=== PATIENT | male | born 1935 | race Two or more races ===

== ENCOUNTER 2018-01-20 12:24 | Inpatient (IN) | payer OTHER ==
[2018-01-20 12:31] VITALS: BMI 26.3
--- NOTE | 2018-01-20 12:50 | PDOC ---
History of Present Illness - General Chief Complaint: Pain, Acute Stated Complaint: ABD PAIN Time Seen by Provider: 01/20/18 12:43 - History of Present Illness Initial Comments: 01/20/18 12:48 82 yo M with h/o Alzheimer dementia, and HTN who p/w abdominal pain and AMS. Per Pt. daughter and at bedside, pt. has had report of abdominal pain within 24 hours beginning yesterday evening. He is unable to characterize or quantify pain, and unable to recall last BM. Family also reports pt. has increased confusion, and forgetfulnness within past 24 hours. No reported fevers. No witnessed falls or injury. Pt. lives at home with daughter and . Denies F/C, N/V, CP, SOB, diarrhea, constipation, urinary complaints, weakness , lightheadedness, sensory changes. Dr. Arce PMD. Past History - Past Medical History Allergies/Adverse Reactions: Allergies Allergy/AdvReac Type Severity Reaction Status Date / Time No Known Allergies Allergy Verified 01/20/18 12:26 COPD: No HTN: Yes Psychiatric Problems: (dementia) - Immunization History Immunization Up to Date: Yes - Suicide/Smoking/Psychosocial Hx Smoking History: Never smoked Review of Systems - Review of Systems Comments:: Unable to obtain d/t AMS. *Physical Exam - Vital Signs Last Vital Signs Temp Pulse Resp BP Pulse Ox 97.7 F 89 20 138/65 95 01/20/18 12:26 01/20/18 12:26 01/20/18 12:26 01/20/18 12:26 01/20/18 12:26 - Physical Exam Comments: 01/20/18 12:48 GENERAL: Awake, alert, and fully oriented, in no acute distress HEAD: No signs of trauma, normocephalic, atraumatic EYES: PERRLA, EOMI, sclera anicteric, conjunctiva clear ENT: Auricles normal inspection, hearing grossly normal, nares patent, oropharynx clear without exudates. Moist mucosa NECK: Normal ROM, supple, no lymphadenopathy, JVD, or masses LUNGS: No distress, speaks full sentences, clear to auscultation bilaterally HEART: Regular rate and rhythm, normal S1 and S2, no murmurs, rubs or gallops, peripheral pulses normal and equal bilaterally. ABDOMEN: Soft, slight midabdominal ttp, normoactive bowel sounds. No guarding, no rebound. No masses. Neg CVA ttp. Neg suprapubic ttp. EXTREMITIES : Normal inspection, Normal range of motion, no edema. No clubbing or cyanosis. NEUROLOGICAL: Cranial nerves II through XII grossly intact. Normal speech, normal gait, no focal sensorimotor deficits SKIN: Warm, Dry, normal turgor, no rashes or lesions noted ED Treatment Course - LABORATORY CBC & Chemistry Diagram: 01/20/18 13:55 01/20/18 13:55 Medical Decision Making - Medical Decision Making 01/20/18 12:52 82 yo M with h/o Alzheimer dementia, and HTN who p/w abdominal pain and AMS within 24 hours beginning yesterday evening. Family also reports pt.with increased confusion, and forgetfulness within past 24 hours. No reported fevers. No witnessed falls or injury. Pt. lives at home with daughter and . Denies F/C, N/V, CP, SOB, diarrhea, constipation, urinary complaints, weakness , lightheadedness, sensory changes. Dr. Arce PMD. Physical exam with midabominal ttp. Will evaluate for suspected causes of AMS in elderly patient with multiple commorbidities. Differential is broad and includes underlying infection ( GI source suspected- choley,colitis) , electrolyte abnormality, metabolic acid-base disturbance, CVA/TIA. PMD Dr. Arce, admits to hospitalist. Abdominal pain may be 2/2 constipation vs. more concerning GI pathology. Will obtain abdominal imaging. ED Course: CBC, CMP, Cardiac Pr, Lipase EKG, CXR UA CT HEAD, CT AP 01/20/18 13:42 CBC: Unremarkable UA: Neg. 2 Urine bilirubin 01/20/18 14:55 1830 AST, 2141 ALT, 3.4 Bili, 254 Alk Phosp Lipase: Neg 01/20/18 14:55 1098 BNP 01/20/18 16:37 CT HEAD: No acute intracranial pathology. 01/20/18 18:48 CT AP: Contracted gallbladder. Pericholeycystic fluid and gallbladder wall thickening. 01/20/18 18:51 IV Levaquin, and Flagyl 01/20/18 19:01 Consult placed to [facility] and Dr. Castro Jimenez surgery ( answering service requesting call back). Attempted call to . Spoke to Dr. Jimenez she reports pt. needs RUQ U/S and will come to evaluate pt. Possible MRCP. 01/20/18 19:17 Pt. signed out to . Pt. stable. *DC/Admit/Observation/Transfer Diagnosis at time of Disposition: Transaminitis, Abdominal pain - Referrals Referrals: Tod Mulligan MD [Primary Care Provider] - - Patient Instructions - Post Discharge Activity - Attestations Physician Attestion: 01/20/18 12:50 I attest to the information provided in this note.
--- NOTE | 2018-01-20 13:08 | PDOC ---
Attending Attestation - Resident Resident Name: Masood Mirandason - ED Attending Attestation I have performed the following: I have examined & evaluated the patient, The case was reviewed & discussed with the resident, I agree w/resident's findings & plan, Exceptions are as noted - HPI HPI: 01/20/18 14:05 82 yo M h/o Dementia and HTN who presents to the ER with a complaint of abdominal pain and AMS Symptoms began yesterday History is limited due to pt dementia ? diarrhea ? constipation No nausea or vomiting No dysuria Pt increasingly confused and forgetful more than baseline over the past 24 hours - Physicial Exam PE: 01/20/18 14:06 GENERAL: The patient is in no acute distress. LUNGS: Breath sounds equal, clear to auscultation bilaterally. No wheezes, and no crackles. HEART:Regular rate and rhythm, normal S1 and S2 without murmur, rub or gallop. ABDOMEN: Soft, nontender, normoactive bowel sounds. No guarding, no rebound. No masses palpable. EXTREMITIES: Normal range of motion, no edema. No clubbing or cyanosis. No erythema, or tenderness. NEUROLOGICAL: Cranial nerves II through XII grossly intact. Normal speech. No focal neurological deficits. MUSCULOSKELETAL: Back non-tender to palpation, no CVA tenderness SKIN: Warm, Dry, normal turgor, no rashes or lesions noted. - Medical Decision Making 01/20/18 15:19 Laboratory Tests 01/20/18 01/20/18 01/20/18 13:55 13:55 13:55 WBC 8.8 Hgb 14.7 Hct 43.6 Plt Count 189 Sodium 140 Potassium 3.6 Chloride 101 Carbon Dioxide 26 BUN 23 H Creatinine 1.4 H Random Glucose 135 H Total Bilirubin 3.4 H AST 1830 H ALT 2141 H Alkaline Phosphatase 254 H Troponin I 0.03 B-Natriuretic Peptide 1098.[address] Pending US Will admit Clinical Impression: possible cholecystitis, initial presentation
[2018-01-20 14:14] LABS: BASO % 0.1 % (0-2.0); EOS % 0.1 % (0-4.5); HEMATOCRIT 43.6 % (35.4-49); HEMOGLOBIN 14.7 GM/dL (11.7-16.9); LYMPH % 2.8 % (8-40); MCH 29.8 pg (25.7-33.7); MCHC 33.8 g/dl (32.0-35.9); MEAN CELL VOLUME 88.1 fl (80-96); MEAN PLT VOLUME 8.6 fl (7.5-11.1); MONO % 5.3 % (3.8-10.2); NEUT % 91.7 % (42.8-82.8); PLATELET COUNT 189 K/MM3 (134-434); RBC 4.95 M/mm3 (4.00-5.60); RDW 13.8 % (11.9-15.9); WHITE BLOOD COUNT 8.8 K/mm3 (4.0-10.0)
[2018-01-20 14:25] LABS: URINE APPEARANCE CLEAR; URINE BLOOD NEGATIVE (NEGATIVE); URINE COLOR AMBER; URINE GLUCOSE (UA) NEGATIVE (NEGATIVE); URINE KETONE NEGATIVE (NEGATIVE); URINE LEUK ESTERASE NEGATIVE (NEGATIVE); URINE NITRITE NEGATIVE (NEGATIVE); URINE UROBILINOGEN 4.0 E.U/dl mg/dL (0.2-1.0)
[2018-01-20 14:32] LABS: URINE PROTEIN 1+ (NEGATIVE)
[2018-01-20 14:36] LABS: INR 1.02 (0.82-1.09); PROTHROMBIN TIME (PATIENT) 11.5 SEC (9.98-11.88); URINE MUCUS MANY
[2018-01-20 14:38] LABS: ALBUMIN 3.7 g/dl (3.4-5.0); ANION GAP 13 (8-16); BILIRUBIN,TOTAL 3.4 mg/dL (0.2-1.0); BLOOD UREA NITROGEN 23 mg/dL (7-18); CHLORIDE 101 mmol/L (98-107); CO2 26 mmol/L (21-32); CREATININE 1.4 mg/dL (0.7-1.3); GLUCOSE,RANDOM 135 mg/dL (74-106); POTASSIUM 3.6 mmol/L (3.5-5.1); SODIUM 140 mmol/L (136-145); TOT PROT 7.7 g/dl (6.4-8.2)
[2018-01-20 14:42] LABS: N-TERMINAL BNP 1098.62 pg/ml (5-450)
[2018-01-20 14:44] LABS: ALK PHOS 254 U/L (45-117)
[2018-01-20 14:49] LABS: SGOT/AST 1830 U/L (15-37); SGPT/ALT 2141 U/L (12-78)
[2018-01-20] MEDS ORDERED: SODIUM CHLORIDE 1,000 ML IV STA ×2 (15:48→19:10)
--- NOTE | 2018-01-20 19:46 | PDOC ---
*Physical Exam - Vital Signs Last Vital Signs Temp Pulse Resp BP Pulse Ox 97.7 F 89 20 138/65 95 01/20/18 12:26 01/20/18 12:26 01/20/18 12:26 01/20/18 12:26 01/20/18 12:26 ED Treatment Course - LABORATORY CBC & Chemistry Diagram: 01/20/18 13:55 01/20/18 13:55 - ADDITIONAL ORDERS Additional order review: Laboratory Results 01/20/18 01/20/18 01/20/18 13:55 13:55 13:55 PT with INR 11.50 INR 1.02 Sodium 140 Potassium 3.6 Chloride 101 Carbon Dioxide 26 Anion Gap 13 BUN 23 H Creatinine 1.4 H Creat Clearance w eGFR 48.76 Random Glucose 135 H Calcium 9.0 Total Bilirubin 3.4 H AST 1830 H ALT 2141 H Alkaline Phosphatase 254 H Creatine Kinase Troponin I B-Natriuretic Peptide Total Protein 7.7 Albumin 3.7 Lipase Urine Color Urine Appearance Urine pH Ur Specific [place] Urine Protein Urine Glucose (UA) Urine Ketones Urine Blood Urine Nitrite Urine Bilirubin Urine Urobilinogen Ur Leukocyte Esterase Urine WBC (Auto) Urine RBC (Auto) Urine Mucus Blood Type O POSITIVE Antibody Screen Negative 01/20/18 01/20/18 13:55 13:55 PT with INR INR Sodium Potassium Chloride Carbon Dioxide Anion Gap BUN Creatinine Creat Clearance w eGFR Random Glucose Calcium Total Bilirubin AST ALT Alkaline Phosphatase Creatine Kinase 132 Troponin I 0.03 B-Natriuretic Peptide 1098.62 H Total Protein Albumin Lipase 143 Urine Color Lu Urine Appearance Clear Urine pH 5.0 Ur Specific [place] 1.026 Urine Protein 1+ H Urine Glucose (UA) Negative Urine Ketones Negative Urine Blood Negative Urine Nitrite Negative Urine Bilirubin 2.0 Urine Urobilinogen 4.0 e.u/dl Ur Leukocyte Esterase Negative Urine WBC (Auto) 3 Urine RBC (Auto) 3 Urine Mucus Many Blood Type Antibody Screen 01/20/18 13:55 RBC 4.95 MCV 88.1 MCHC 33.8 RDW 13.8 MPV 8.6 Neutrophils % 91.7 H Lymphocytes % 2.8 L Monocytes % 5.3 Eosinophils % 0.1 Basophils % 0.1 - RADIOLOGY Radiology Studies Ordered: Category Date Time Status ABDOMEN US -LIMITED [US] Stat Ultrasound 01/20/18 19:42 Ordered - Medications Given in the ED: ED Medications Discontinued Medications Generic Name Dose Route Start Last Admin Trade Name Freq PRN Reason Stop Dose Admin Sodium Chloride 1,000 mls @ 1,000 mls/hr 01/20/18 15:48 01/20/18 16:53 Normal Saline - IV 01/20/18 16:47 1,000 mls/hr ASDIR STA Administration Medical Decision Making - Medical Decision Making Patient signed out in stable condition with concern for choledocholithiasis. Signed out to hospitalist (Dr. Brian) in stable condition pending US. 01/20/18 19:44 *DC/Admit/Observation/Transfer Diagnosis at time of Disposition: Transaminitis, Abdominal pain - Discharge Dispostion Condition at time of disposition: Stable Admit: Yes Decision to Admit order Date/Time: Decision to Admit Order Category Date Time Status Decision to Admit to Hospital Routine Admission 01/20/18 19:43 Ordered - Referrals Referrals: Tod Mulligan MD [Primary Care Provider] - - Patient Instructions - Post Discharge Activity
--- NOTE | 2018-01-20 20:01 | PN ---
Teaching Attending Note Name of Resident: Reji Wiseman ATTENDING PHYSICIAN STATEMENT I saw and evaluated the patient. I reviewed the resident's note and discussed the case with the resident. I agree with the resident's findings and plan as documented. SUBJECTIVE: 82 yo M with pmhx. of Alzheimers dementia, htn, who presents with abdominal pain and AMS. States abdominal pain started a day ago. Also as per family he is increasingly confused. Denies any fevers. No Chest pain, pressure or shortness of breath. Pt. States he feels ok, but notes decreased appetitite. No nausea, vomiting, or diarrhea. OBJECTIVE: Physical: VS: Vital Signs Period Temp Pulse Resp BP Sys/Calles Pulse Ox Last 24 Hr 97.7 F 89 20 138/65 95 GEN: NAD, Resting in bed, AA)x3 HEENT: NCAT, PERRL, Throat without erythema or exudates CARD: RRR S1, S2 RESP: CTAB ABD: TTP RUQ, BSx4, Mild distension EXT: - C/C/E CBCD WBC 8.8 K/mm3 (4.0-10.0) 01/20/18 13:55 RBC 4.95 M/mm3 (4.00-5.60) 01/20/18 13:55 Hgb 14.7 GM/dL (11.7-16.9) 01/20/18 13:55 Hct 43.6 % (35.4-49) 01/20/18 13:55 MCV 88.1 fl (80-96) 01/20/18 13:55 MCHC 33.8 g/dl (32.0-35.9) 01/20/18 13:55 RDW 13.8 % (11.9-15.9) 01/20/18 13:55 Plt Count 189 K/MM3 (134-434) 01/20/18 13:55 MPV 8.6 fl (7.5-11.1) 01/20/18 13:55 CMP Sodium 140 mmol/L (136-145) 01/20/18 13:55 Potassium 3.6 mmol/L (3.5-5.1) 01/20/18 13:55 Chloride 101 mmol/L (98-107) 01/20/18 13:55 Carbon Dioxide 26 mmol/L (21-32) 01/20/18 13:55 Anion Gap 13 (8-16) 01/20/18 13:55 BUN 23 mg/dL (7-18) H 01/20/18 13:55 Creatinine 1.4 mg/dL (0.7-1.3) H 01/20/18 13:55 Creat Clearance w eGFR 48.76 (>60) 01/20/18 13:55 Random Glucose 135 mg/dL (74-106) H 01/20/18 13:55 Calcium 9.0 mg/dL (8.5-10.1) 01/20/18 13:55 Total Bilirubin 3.4 mg/dL (0.2-1.0) H 01/20/18 13:55 AST 1830 U/L (15-37) H 01/20/18 13:55 ALT 2141 U/L (12-78) H 01/20/18 13:55 Alkaline Phosphatase 254 U/L (45-117) H 01/20/18 13:55 Total Protein 7.7 g/dl (6.4-8.2) 01/20/18 13:55 Albumin 3.7 g/dl (3.4-5.0) 01/20/18 13:55 CARDIAC ENZYMES Creatine Kinase 132 IU/L (39-308) 01/20/18 13:55 Troponin I 0.03 ng/ml (0.00-0.05) 01/20/18 13:55 CT AP: Contracted gallbladder. Pericholeycystic fluid and gallbladder wall thickening. CT HEAD- Negative EKG: PENDING CXR: No Acute Process ASSESSMENT AND PLAN: 82 yo M with pmhx. of Alzheimers dementia, htn, who presents with abdominal pain and AMS, found to have elevated transaminases and contracted Gallbladded on CT 1.) Abdominal Pain - RO Choledocholithisis - ABD US stat - MRCP with con, if Cr improves - GI/Sx - C/W Abx - Pancx - IVF 2.) BEA - Unknown Baseline - IVF - U lytes 3.) HTN - Need med confirmation from Pharmacy 4.) Alzheimer's Dementia - Confirm home meds 5.) Dvt Ppx - SCDs Place in Med-Sx
[2018-01-20] MEDS ORDERED: DOCUSATE SODIUM 100 MG CAPSULE (FP) PO PRN (20:30)
--- NOTE | 2018-01-20 20:39 | CONSULT ---
Consult Consult Specialty:: General Surgery Referred by:: Ralph Miranda Reason for Consultation:: elevated LFTs, possible cholecystitis?, contracted gallbladder - History of Present Illness Chief Complaint: abdominal pain, "walking funny" History of Present Illness: 82yo Citizen Of [place] M with HTN, depression, Alzheimer's, presents with about a week of increasing forgetfulness and confusion per family with difficulty walking right, and yesterday began having epigastric abdominal pain as well. They deny F /C, N/V, diarrhea, but he did have hard stool yesterday which was dark, and has had very dark yellow urine in last day. He tends to constipation. He is currently hungry and denies pain. In ER, he has had some IVF, antibiotics, and noncontrast CT, which showed contracted gallbladder with wall thickening and/or pericholecystic fluid but no ductal dilation. Renal labs and LFTs are elevated but lipase, wbc, INR are normal. He is dehydrated by labs and urine. He is being admitted to medicine with US pending, and surgery is asked to evaluate. He takes medicines at home that family is unsure of - a medicine for blood pressure, something for depression, aspirin... the medical team will check with his pharmacy. 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 (being worked up by PMD for confusion, forgetfulness, fidgeting) Cardio/Vascular: Yes: HTN Gastrointestinal: Yes: Constipation Psych: Yes: Depression - Past Surgical History Past Surgical History: Yes: Colonoscopy (in DR, years ago), Hernia Repair ( umbilical (years ago)) - Alcohol/Substance Use Hx Alcohol Use: No (not for many years/socially) History of Substance Use: reports: None - Smoking History Smoking history: Former smoker Have you smoked in the past 12 months: No If you are a former smoker, when did you quit?: 15 yrs ago - Social History Usual Living Arrangement: With Spouse Home Medications - Allergies Allergies/Adverse Reactions: Allergies Allergy/AdvReac Type Severity Reaction Status Date / Time No Known Allergies Allergy Verified 01/20/18 12:26 - Home Medications Home Medications (free text): BP med. aspirin. something for depression. ( primary team to get list from pharmacy) Family Disease History - Family Disease History Family History: Unremarkable Review of Systems Unable to obtain ROS, reason: ltd - per family only - Review of Systems Constitutional: denies: Chills, Fever Cardiovascular: denies: Chest Pain, Palpitations Respiratory: denies: Cough, SOB Gastrointestinal: reports: Abdominal Pain (with hpi), Constipation (hard stool yesterday, dark stool). denies: Diarrhea, Nausea, Vomiting Genitourinary: reports: Other (very dark yellow urine in last day). denies: Burning, Dysuria Musculoskeletal: denies: Back Pain, Joint Pain Neurological: reports: Confusion, Unsteady Gait (per family - "walking funny"). denies: Headache Psychiatric: reports: Depression Physical Exam Vital Signs: Vital Signs Temperature 97.7 F 01/20/18 12:26 Pulse Rate 89 01/20/18 12:26 Respiratory Rate 20 01/20/18 12:26 Blood Pressure 138/65 01/20/18 12:26 O2 Sat by Pulse Oximetry (%) 95 01/20/18 12:26 Constitutional: Yes: Well Nourished, No Distress, Calm Eyes: Yes: Conjunctiva Clear, EOM Intact. No: Sclera Icterus HENT: Yes: Atraumatic, Normocephalic Neck: Yes: Supple, Trachea Midline Cardiovascular: Yes: Regular Rate and Rhythm. No: Murmur Respiratory: Yes: Regular, CTA Bilaterally Gastrointestinal: Yes: Normal Bowel Sounds, Soft, Distention (protuberant), Tenderness (minimal epigastric, denies RUQ), Tenderness, Epigastrium (minimal), Other (healed infraumbilical scar). No: Hernia, Tenderness, Rebound ...Rectal Exam: Yes: Deferred Renal/: No: CVA Tenderness - Left, CVA Tenderness - Right Musculoskeletal: No: Joint Stiffness, Joint Swelling Extremities: No: Cool, Cyanosis Edema: No Peripheral Pulses WNL: Yes Integumentary: No: Jaundice, Rash Neurological: Yes: Alert, Oriented (cooperative, answers questions, but does seem a little confused), Confusion (somewhat, baseline unclear), Other (gait not witnessed) Psychiatric: Yes: Alert. No: Agitated Labs: CBC, BMP 01/20/18 13:55 01/20/18 13:55 CMP Sodium 140 mmol/L (136-145) 01/20/18 13:55 Potassium 3.6 mmol/L (3.5-5.1) 01/20/18 13:55 Chloride 101 mmol/L (98-107) 01/20/18 13:55 Carbon Dioxide 26 mmol/L (21-32) 01/20/18 13:55 Anion Gap 13 (8-16) 01/20/18 13:55 BUN 23 mg/dL (7-18) H 01/20/18 13:55 Creatinine 1.4 mg/dL (0.7-1.3) H 01/20/18 13:55 Creat Clearance w eGFR 48.76 (>60) 01/20/18 13:55 Random Glucose 135 mg/dL (74-106) H 01/20/18 13:55 Calcium 9.0 mg/dL (8.5-10.1) 01/20/18 13:55 Total Bilirubin 3.4 mg/dL (0.2-1.0) H 01/20/18 13:55 AST 1830 U/L (15-37) H 01/20/18 13:55 ALT 2141 U/L (12-78) H 01/20/18 13:55 Alkaline Phosphatase 254 U/L (45-117) H 01/20/18 13:55 Creatine Kinase 132 IU/L (39-308) 01/20/18 13:55 Troponin I 0.03 ng/ml (0.00-0.05) 01/20/18 13:55 B-Natriuretic Peptide 1098.62 pg/ml (5-450) H 01/20/18 13:55 Total Protein 7.7 g/dl (6.4-8.2) 01/20/18 13:55 Albumin 3.7 g/dl (3.4-5.0) 01/20/18 13:55 Lipase 143 U/L (73-393) 01/20/18 13:55 INR, PTT INR 1.02 (0.82-1.09) 01/20/18 13:55 Urine Test Results Urine Color Lu 01/20/18 13:55 Urine Appearance Clear 01/20/18 13:55 Urine pH 5.0 (5.0-8.0) 01/20/18 13:55 Ur Specific [place] 1.026 (1.001-1.035) 01/20/18 13:55 Urine Protein 1+ (NEGATIVE) H 01/20/18 13:55 Urine Glucose (UA) Negative (NEGATIVE) 01/20/18 13:55 Urine Ketones Negative (NEGATIVE) 01/20/18 13:55 Urine Blood Negative (NEGATIVE) 01/20/18 13:55 Urine Nitrite Negative (NEGATIVE) 01/20/18 13:55 Urine Bilirubin 2.0 (<2.0 mg/dL) 01/20/18 13:55 Ur Leukocyte Esterase Negative (NEGATIVE) 01/20/18 13:55 Urine Mucus Many 01/20/18 13:55 normal wbc elevated LFTs, normal lipase minimally elevated BNP dehydrated BUN/Cr a little high - unknown baseline normal PT/INR Imaging - Results Cat Scan: Report Reviewed, Image Reviewed (noncontrast images reviewed - contracted gallbladder with thickened wall (may be physiologic), but possible pericholecystic fluid, no biliary ductal dilation noted, few hypoattenuating hepatic lesions, no obstruction, no free air or fluid/ascites) Ultrasound: Pending Problem List - Problems (1) Elevated liver enzymes Assessment/Plan: admitted to medicine agree with NPO/IVF trend labs, including T/D bili, am/lipase, ammonia, LFTs, hepatitis panel nonnarcotic pain meds as able prn GI/DVT prophylaxis CT with abnormal appearing gallbladder but without clear cholecystitis US pending probably will need MRI/MRCP WITH contrast tomorrow, after rehydrated and improved renal function further input pending above Code(s): R74.8 - ABNORMAL LEVELS OF OTHER SERUM ENZYMES (2) Epigastric pain Assessment/Plan: minimal epigastric tenderness studies pending Code(s): R10.13 - EPIGASTRIC PAIN (3) Other abnormalities of gait and mobility Assessment/Plan: gait not witnessed fall risk Code(s): R26.89 - OTHER ABNORMALITIES OF GAIT AND MOBILITY (4) Dehydration Assessment/Plan: NPO IVF resuscitation and maintenance Code(s): E86.0 - DEHYDRATION (5) Altered mental status Assessment/Plan: increased confusion and forgetfulness per family check ammonia level Code(s): R41.82 - ALTERED MENTAL STATUS, UNSPECIFIED Qualifiers: Altered mental status type: disorientation Qualified Code(s): R41.0 - Disorientation, unspecified (6) Alzheimers disease Assessment/Plan: Dr. Mulligan working him up for fidgetiness, forgetfulness, confusion Code(s): G30.9 - ALZHEIMER'S DISEASE, UNSPECIFIED; F02.80 - DEMENTIA IN OTH DISEASES CLASSD ELSWHR W/O BEHAVRL DISTURB Qualifiers: Alzheimer's disease onset: unspecified onset Dementia behavioral disturbance: with behavioral disturbance Qualified Code(s): G30.9 - Alzheimer' s disease, unspecified; F02.81 - Dementia in other diseases classified elsewhere with behavioral disturbance; F02.81 - Dementia in other diseases classified elsewhere with behavioral disturbance; F02.81 - Dementia in other diseases classified elsewhere with behavioral disturbance
[2018-01-20] MEDS: SODIUM CHLORIDE 1,000 ML IV SCH (20:55)
--- NOTE | 2018-01-20 20:55 | HP ---
CHIEF COMPLAINT: abdominal pain PCP: Dr. Bhagat HISTORY OF PRESENT ILLNESS: 82 year old male with a history of hypertension and dementia presents to the hospital for 24 hour history of RUQ abdominal pain that began last night at 9pm while he was watching TV. He states that the pain is abrupt, non-radiating, 10/ 10 in severity located in the RUQ. He was eating dinner prior to the pain beginning. Not associated with any nausea, vomiting or diarrhea. His family states that he had a similar pain several months ago which went away spontaneously without intervention. His last colonoscopy was many years ago in the [place]. He states that his last bowel movement was yesterday and says that his urine is dark yellow. States that the pain has improved since initial presentation. Patient denies chest pain, shortness of breath, nausea, vomiting, diarrhea, fevers, chills, headache. Home meds: Donezepil, Meloxicam, Aspirin, Amlodipine, [place]-3, Vitamin B, Sertraline - Patient pharamcy: [facility] on [facility]. ER course was notable for: (1) AST/ALT 1830/2141, AP 254 (2) CT abd: pericholecystic fluid/gallbladder wall thickening (3) levaquin/flagyl given PAST MEDICAL HISTORY: HTN, dementia PAST SURGICAL HISTORY: hernia repair years ago Social History: Smoking: former smoker, quit 15 years ago Alcohol: former social drinker Drugs: none Allergies No Known Allergies Allergy (Verified 01/20/18 12:26) HOME MEDICATIONS: REVIEW OF SYSTEMS CONSTITUTIONAL: Absent: fever, chills, diaphoresis, generalized weakness, malaise, loss of appetite, weight change HEENT: Absent: rhinorrhea, nasal congestion, throat pain, throat swelling, difficulty swallowing, mouth swelling, ear pain, eye pain, visual changes CARDIOVASCULAR: Absent: chest pain, syncope, palpitations, irregular heart rate, lightheadedness , peripheral edema RESPIRATORY: Absent: cough, shortness of breath, dyspnea with exertion, orthopnea, wheezing, stridor, hemoptysis GASTROINTESTINAL: abdominal pain Absent: abdominal distension, nausea, vomiting, diarrhea, constipation, melena , hematochezia GENITOURINARY: Absent: dysuria, frequency, urgency, hesitancy, hematuria, flank pain, genital pain MUSCULOSKELETAL: Absent: myalgia, arthralgia, joint swelling, back pain, neck pain SKIN: Absent: rash, itching, pallor HEMATOLOGIC/IMMUNOLOGIC: Absent: easy bleeding, easy bruising, lymphadenopathy, frequent infections ENDOCRINE: Absent: unexplained weight gain, unexplained weight loss, heat intolerance, cold intolerance NEUROLOGIC: Absent: headache, focal weakness or paresthesias, dizziness, unsteady gait, seizure, mental status changes, bladder or bowel incontinence PSYCHIATRIC: Absent: anxiety, depression, suicidal or homicidal ideation, hallucinations. PHYSICAL EXAMINATION Vital Signs - 24 hr 01/20/18 12:26 Temperature 97.7 F Pulse Rate 89 Respiratory 20 Rate Blood Pressure 138/65 O2 Sat by Pulse 95 Oximetry (%) GENERAL: A&Ox3, no acute distress EYES: PERRLA, EOMI ENT: Moist mucus membranes NECK: No JVD LUNGS: CTA, no wheezes HEART: RRR, no murmurs appreciated ABDOMEN: Soft, nontender, BS present MUSCULOSKELETAL: No CVA Tenderness EXTREMITIES: 2+ pulses, no edema. NEUROLOGICAL: Cranial nerves II-XII intact. Laboratory Results - last 24 hr 01/20/18 01/20/18 01/20/18 13:55 13:55 13:55 WBC 8.8 RBC 4.95 Hgb 14.7 Hct 43.6 MCV 88.1 MCH 29.8 MCHC 33.8 RDW 13.8 Plt Count 189 MPV 8.6 Neutrophils % 91.7 H Lymphocytes % 2.8 L Monocytes % 5.3 Eosinophils % 0.1 Basophils % 0.1 PT with INR INR Sodium Potassium Chloride Carbon Dioxide Anion Gap BUN Creatinine Creat Clearance w eGFR Random Glucose Calcium Total Bilirubin AST ALT Alkaline Phosphatase Creatine Kinase 132 Troponin I 0.03 B-Natriuretic Peptide 1098.62 H Total Protein Albumin Lipase 143 Urine Color Lu Urine Appearance Clear Urine pH 5.0 Ur Specific [place] 1.026 Urine Protein 1+ H Urine Glucose (UA) Negative Urine Ketones Negative Urine Blood Negative Urine Nitrite Negative Urine Bilirubin 2.0 Urine Urobilinogen 4.0 e.u/dl Ur Leukocyte Esterase Negative Urine WBC (Auto) 3 Urine RBC (Auto) 3 Urine Mucus Many Blood Type Antibody Screen 01/20/18 01/20/18 01/20/18 13:55 13:55 13:55 WBC RBC Hgb Hct MCV MCH MCHC RDW Plt Count MPV Neutrophils % Lymphocytes % Monocytes % Eosinophils % Basophils % PT with INR 11.50 INR 1.02 Sodium 140 Potassium 3.6 Chloride 101 Carbon Dioxide 26 Anion Gap 13 BUN 23 H Creatinine 1.4 H Creat Clearance w eGFR 48.76 Random Glucose 135 H Calcium 9.0 Total Bilirubin 3.4 H AST 1830 H ALT 2141 H Alkaline Phosphatase 254 H Creatine Kinase Troponin I B-Natriuretic Peptide Total Protein 7.7 Albumin 3.7 Lipase Urine Color Urine Appearance Urine pH Ur Specific [place] Urine Protein Urine Glucose (UA) Urine Ketones Urine Blood Urine Nitrite Urine Bilirubin Urine Urobilinogen Ur Leukocyte Esterase Urine WBC (Auto) Urine RBC (Auto) Urine Mucus Blood Type O POSITIVE Antibody Screen Negative ASSESSMENT/PLAN: 82 year old male with a history of dementia and hypertension presents to the hospital with 24 hour history of abdominal pain suspect for possible choledocholithiasis vs cholecystitis #Abdominal Pain: likely 2/2 choledocholithiasis vs cholecystitis -improved compared to initial presentation -CT Abd: pericholecystic fluid, shrunken gallbladder, gallbladder wall thickening -AST/ALT: 1830/2141 -AP 254 -keep NPO for now -GI consult Dr. Sam appreciated -surgery consult Dr. Jimenez appreciated -f/u ultrasound liver/gallbladder -f/u ammonia level -f/u lipid panel -f/u Hepatitis A/B/C panel -f/u Total and Direct Bilirubin -repeat transaminases in the AM -start levaquin/flagyl - will consider stopping depending on further workup of abdominal pain -Fluid hydration @ 125cc/hr after bolus -possible MRI/MRCP with contrast in the AM pending creatinine improvement #Acute Kidney Injury: unknown baseline -fluid hydration @ 125 cc/hr of normal saline -recheck CMP in AM #Hypertension: not an acute issue, patient is not hypertensive -currently patient is on amlodipine of unknown dose, please confirm home medications in the AM -[facility] in [place] #Dementia: likely alzheimer's -patient is on donepezil at home, but need to med-rec to confirm #FEN -NS @ 125cc/hr -replete lytes in AM -NPO #Prophylaxis -heparin 5000 subq TID #Disposition -admit to med surg Visit type - Emergency Visit Emergency Visit: Yes ED Registration Date: 01/20/18 Care time: The patient presented to the Emergency Department on the above date and was hospitalized for further evaluation of their emergent condition. - New Patient This patient is new to me today: Yes Date on this admission: 01/21/18 - Critical Care Critical Care patient: No Hospitalist Screening - Colonoscopy Questionnaire Colonoscopy Questionnaire: Colonoscopy Questionnaire - Patient: 50 - 75 years old and never had a screening colonoscopy: Unknown History of colon or rectal polyps, or CA: Unknown History of IBD, Crohn's disease or UC: Unknown History of abdominal radiation therapy as a child: Unknown - Relative: 1 with colon or rectal CA, or polyps at age 60 or younger: Unknown Colon or rectal CA diagnosed at age 45 or younger: Unknown Multiple relatives with colon or rectal CA: Unknown - Outcome: Screening Result: Negative Screen
[2018-01-20] MEDS: HEPARIN NA (PORCINE) 5,000 UNITS/ML 1ML VIAL SQ SCH (23:39)
[2018-01-21] MEDS: SODIUM CHLORIDE 1,000 ML IV SCH (02:03)
[2018-01-21] MEDS: HEPARIN NA (PORCINE) 5,000 UNITS/ML 1ML VIAL SQ SCH (06:27)
[2018-01-21 07:44] LABS: BILIRUBIN,DIRECT 2.1 mg/dL (0.0-0.2)
[2018-01-21 08:16] LABS: HEMATOCRIT 36.6 % (35.4-49); HEMOGLOBIN 12.4 GM/dL (11.7-16.9); MCH 29.9 pg (25.7-33.7); MCHC 33.8 g/dl (32.0-35.9); MEAN CELL VOLUME 88.3 fl (80-96); MEAN PLT VOLUME 8.8 fl (7.5-11.1); PLATELET COUNT 138 K/MM3 (134-434); RBC 4.14 M/mm3 (4.00-5.60); RDW 13.8 % (11.9-15.9); WHITE BLOOD COUNT 5.7 K/mm3 (4.0-10.0)
[2018-01-21 08:18] LABS: INR 1.36 (0.82-1.09); PROTHROMBIN TIME (PATIENT) 15.4 SEC (9.98-11.88)
--- NOTE | 2018-01-21 08:26 | PN ---
Physical Exam: SUBJECTIVE: Patient seen and examined by me this AM - No overnight events; afebrile, VSS; Pt denies SHORE, vision changes, f/c/n/v/d, chest pain, cough, sob, back pain, dysuria, hematuria, LE swelling; Denies any abdominal pain this AM; No BM overnight OBJECTIVE: Vital Signs Intake & Output 01/18/18 01/19/18 01/20/18 01/21/18 23:59 23:59 23:59 23:59 Intake Total 1600 Balance 1600 Weight 76.204 kg Period Temp Pulse Resp BP Sys/Calles Pulse Ox Last 24 Hr 97.7 F-99.2 F 71-89 16-20 114-142/61-74 95-95 GENERAL: Elderly man, NAD, lying in bed HEAD: Normal with no signs of trauma. EYES: PERRL, extraocular movements intact, sclera anicteric, conjunctiva clear. No ptosis. ENT: Ears normal, nares patent, oropharynx clear without exudates, moist mucous membranes. NECK: Trachea midline, full range of motion, supple. LUNGS: Breath sounds equal, clear to auscultation bilaterally, no wheezes, no crackles, no accessory muscle use. HEART/CHEST: Multiple actinic keratoses noted on anterior chest wall. Regular rate and rhythm, S1, S2 without murmur, rub or gallop. ABDOMEN: TTP in RUQ. + Lundberg's sign. Soft, nondistended, normoactive bowel sounds, no guarding, no rebound, no hepatosplenomegaly, no masses. EXTREMITIES: 2+ DP/PT pulses BL, warm, well-perfused, no edema. NEUROLOGICAL: Cranial nerves II through XII grossly intact. Normal speech, gait not observed. PSYCH: Normal mood, normal affect. Somnolent. SKIN: Warm, dry, normal turgor, no rashes or lesions noted Laboratory Results - last 24 hr CBC, BMP 01/21/18 06:00 01/21/18 06:00 01/20/18 01/20/18 01/20/18 13:55 13:55 13:55 WBC 8.8 RBC 4.95 Hgb 14.7 Hct 43.6 MCV 88.1 MCH 29.8 MCHC 33.8 RDW 13.8 Plt Count 189 MPV 8.6 Neutrophils % 91.7 H Lymphocytes % 2.8 L Monocytes % 5.3 Eosinophils % 0.1 Basophils % 0.1 PT with INR INR Sodium Potassium Chloride Carbon Dioxide Anion Gap BUN Creatinine Creat Clearance w eGFR Random Glucose Calcium Total Bilirubin Direct Bilirubin AST ALT Alkaline Phosphatase Ammonia Creatine Kinase 132 Troponin I 0.03 B-Natriuretic Peptide 1098.62 H Total Protein Albumin Lipase 143 Urine Color Lu Urine Appearance Clear Urine pH 5.0 Ur Specific [place] 1.026 Urine Protein 1+ H Urine Glucose (UA) Negative Urine Ketones Negative Urine Blood Negative Urine Nitrite Negative Urine Bilirubin 2.0 Urine Urobilinogen 4.0 e.u/dl Ur Leukocyte Esterase Negative Urine WBC (Auto) 3 Urine RBC (Auto) 3 Urine Mucus Many Blood Type Antibody Screen 01/20/18 01/20/18 01/20/18 13:55 13:55 13:55 WBC RBC Hgb Hct MCV MCH MCHC RDW Plt Count MPV Neutrophils % Lymphocytes % Monocytes % Eosinophils % Basophils % PT with INR 11.50 INR 1.02 Sodium 140 Potassium 3.6 Chloride 101 Carbon Dioxide 26 Anion Gap 13 BUN 23 H Creatinine 1.4 H Creat Clearance w eGFR 48.76 Random Glucose 135 H Calcium 9.0 Total Bilirubin 3.4 H Direct Bilirubin 2.1 H AST 1830 H ALT 2141 H Alkaline Phosphatase 254 H Ammonia Creatine Kinase Troponin I B-Natriuretic Peptide Total Protein 7.7 Albumin 3.7 Lipase Urine Color Urine Appearance Urine pH Ur Specific [place] Urine Protein Urine Glucose (UA) Urine Ketones Urine Blood Urine Nitrite Urine Bilirubin Urine Urobilinogen Ur Leukocyte Esterase Urine WBC (Auto) Urine RBC (Auto) Urine Mucus Blood Type O POSITIVE Antibody Screen Negative 01/20/18 01/20/18 01/21/18 20:55 20:55 06:00 WBC RBC Hgb Hct MCV MCH MCHC RDW Plt Count MPV Neutrophils % Lymphocytes % Monocytes % Eosinophils % Basophils % PT with INR INR Sodium Potassium Chloride Carbon Dioxide Anion Gap BUN Creatinine Creat Clearance w eGFR Random Glucose Calcium Total Bilirubin Cancelled Direct Bilirubin Cancelled AST ALT Alkaline Phosphatase Ammonia Cancelled Creatine Kinase Troponin I B-Natriuretic Peptide Total Protein Albumin Lipase Cancelled Urine Color Urine Appearance Urine pH Ur Specific [place] Urine Protein Urine Glucose (UA) Urine Ketones Urine Blood Urine Nitrite Urine Bilirubin Urine Urobilinogen Ur Leukocyte Esterase Urine WBC (Auto) Urine RBC (Auto) Urine Mucus Blood Type Antibody Screen Active Medications Generic Name Dose Route Start Last Admin Trade Name Freq PRN Reason Stop Dose Admin Sodium Chloride 1,000 mls @ 125 mls/hr 01/20/18 20:30 01/21/18 02:03 Normal Saline - IV 125 mls/hr ASDIR SHANA Administration Metronidazole 500 mg in 100 mls @ 100 mls/hr 01/21/18 03:00 01/21/18 02:02 Flagyl 500mg Premixed Ivpb - IVPB 100 mls/hr Q6H-IV SHANA Administration Levofloxacin 250 mg in 50 mls @ 50 mls/hr 01/21/18 10:00 Levaquin 250 Mg Premixed Ivpb - IVPB 01/26/18 10:59 DAILY SHANA No micro CXR /2 - IMPRESSION: Small left pleural effusion versus chronic pleural thickening with subsegmental atelectasis versus consolidation in the left lung base. Please correlate clinically. Head CT 2 - Impression: Moderate atrophy. No gross evidence of a focal intracranial lesion or hemorrhage is seen. Correlate clinically to determine further evaluation and follow-up Ab CT/pelvis 4/2 -IMPRESSION: 1. Contracted gallbladder with pericholecystic fluid and/or gallbladder wall thickening. Please correlate clinically and with right upper quadrant ultrasound. 2. Enlarged prostate gland with nonspecific subcentimeter hypodensity in the right lobe. Please correlate with PSA and physical exam. 3. Circumferentially prominent urinary bladder wall may be secondary to underdistention and/or chronic outlet obstruction, although cystitis cannot be excluded. Please correlate clinically with urinalysis. 4. Please refer to the report above for other findings. RUQ U/S 4/2 - IMPRESSION: 1. Contracted gallbladder with pericholecystic fluid and/or gallbladder wall thickening. Please correlate clinically and with right upper quadrant ultrasound. 2. Enlarged prostate gland with nonspecific subcentimeter hypodensity in the right lobe. Please correlate with PSA and physical exam. 3. Circumferentially prominent urinary bladder wall may be secondary to underdistention and/or chronic outlet obstruction, although cystitis cannot be excluded. Please correlate clinically with urinalysis. 4. Please refer to the report above for other findings. ASSESSMENT/PLAN: 82 year old male with a history of dementia and hypertension presents to the hospital with 24 hour history of abdominal pain suspect for possible choledocholithiasis vs cholecystitis. Possible surgery pending MRCP. #RUQ pain - likely secondary to choledocholithiasis vs cholecystitis/biliary colic; CT Abd -pericholecystic fluid, shrunken gallbladder, gallbladder wall thickening; ammonia 29; lipase 143; T bili 3.4 -> 3.3, D bili 2.1 -> 2.5 today -improving clinically, less pain today -NPO until after MRCP, then start clears -GI consulted, recs appreciated -Surgery consulted -f/u lipid panel -f/u Hepatitis panel, pending -trend LFTs -d/c abx -IVFs -MRCP ordered; possible surgical intervention #Transaminitis - improving, likely secondary to possible obstruction vs. medication induced (mobic/zoloft) -AST/ALTdowntrending at 1830/2141 -> 508/965 repectively, alk phos 254 -> 158 - continue to trend #Acute Kidney Injury: unknown baseline; cr 1.4 -> 1.1 - IVFs - Trend - avoid nephrotoxic agents #Hypokalemia - 3.3 today - repleted IV, riders x3 #Hypertension- chronic -hold home amlodipine #Dementia- - c/w home aricept #FEN -d5w-1/2ns 100cc -Daily lytes -NPO until after MRCP #Prophylaxis -HSQ #Disposition -M/S Plan discussed with attending, Dr. Danish Castro, PGY1 Visit type - Emergency Visit Emergency Visit: Yes ED Registration Date: 01/20/18 Care time: The patient presented to the Emergency Department on the above date and was hospitalized for further evaluation of their emergent condition. - New Patient This patient is new to me today: Yes Date on this admission: 01/21/18 - Critical Care Critical Care patient: No - Discharge Referral Referred to [facility] Med P.C.: No
[2018-01-21 08:28] LABS: CHLORIDE 111 mmol/L (98-107); POTASSIUM 3.3 mmol/L (3.5-5.1); SODIUM 142 mmol/L (136-145)
[2018-01-21] MEDS ORDERED: KCL 10 MEQ IVPB 10 MEQ/100 ML INFUS.BAG IVPB SCH (08:45)
[2018-01-21 08:53] LABS: ALBUMIN 2.5 g/dl (3.4-5.0); ALK PHOS 158 U/L (45-117); ANION GAP 8 (8-16); BILIRUBIN,TOTAL 3.3 mg/dL (0.2-1.0); BLOOD UREA NITROGEN 18 mg/dL (7-18); CALCIUM 7.1 mg/dL (8.5-10.1); CO2 23 mmol/L (21-32); CREATININE 1.1 mg/dL (0.7-1.3); GLUCOSE,RANDOM 97 mg/dL (74-106); MAGNESIUM 1.9 mg/dL (1.8-2.4); PHOSPHOROUS 2.1 mg/dL (2.5-4.9); TOT PROT 5.3 g/dl (6.4-8.2)
[2018-01-21 08:56] LABS: SGOT/AST 508 U/L (15-37); SGPT/ALT 965 U/L (12-78)
[2018-01-21 09:00] LABS: BILIRUBIN,DIRECT 2.5 mg/dL (0.0-0.2)
[2018-01-21] MEDS ORDERED: WATER IVPB ONE (10:00)
[2018-01-21] MEDS ORDERED: POTASSIUM CHLORIDE IVPB ONE (10:00)
[2018-01-21] MEDS ORDERED: DEXTROSE 5% IVPB ONE (10:00)
--- NOTE | 2018-01-21 10:08 | EKG ---
Test Reason : Blood Pressure : / mmHG Vent. Rate : 079 BPM Atrial Rate : 079 BPM P-R Int : 182 ms QRS Dur : 082 ms QT Int : 376 ms P-R-T Axes : 036 010 074 degrees QTc Int : 431 ms NORMAL SINUS RHYTHM NONSPECIFIC T WAVE ABNORMALITY ABNORMAL ECG NO PREVIOUS ECGS AVAILABLE Confirmed by Himanshu Magallanes MD ([id number]) on 01/21/2018 10:08:00 AM Referred By: Confirmed By:Himanshu Magallanes MD
--- NOTE | 2018-01-21 14:22 | PN ---
Teaching Attending Note Name of Resident: Jeffery Castro ATTENDING PHYSICIAN STATEMENT I saw and evaluated the patient. I reviewed the resident's note and discussed the case with the resident. I agree with the resident's findings and plan as documented. SUBJECTIVE:continues to have some epigastric pain but improved since admission. requesting to eat. has some back discomfort as well. no assoc nausea or vomiting or diarrhea. states pain was shortly after eating chicken with rice and beans. had similar episode on saturday but not as severe. does have some gastric discomfort occasionally after eating the past few months but was never evaluated for it. did take some medication from DR for the pain but does not know what it is called. was started on his home medications 2 weeks ago including mobic. denies Cp, SOB, fever, chills, N/V/C/D, denies herbal supplement use. did have normal colonscopy several years ago in . OBJECTIVE: Last Vital Signs Temp Pulse Resp BP Pulse Ox 98.6 F 71 20 123/76 95 01/21/18 08:49 01/21/18 08:49 01/21/18 09:00 01/21/18 08:49 01/21/18 09:00 General NAD CV S1 S2 RRR no murmur/rub/gallop Lungs CTA B/L no wheezing/rales/rhonchi Abdomen soft +distended tympanic to percussion, +epigastric tenderness no rebound or guarding neg bond sign ASSESSMENT AND PLAN: 82yo M with PMH HTN and dementia presenting with abdominal pain and found to have acute transaminitis 1. Acute transaminitis- likely medication induced (mobic/zoloft) although can not r/o passage of gallstone. now trending down. pain seems improved. u/s showing slightly dilated CBD 0.8mm, will obtain MRCP to better visualize. may benefit from cholecystectomy as appears hes been having intermittent biliary colic episodes. will d/c abx as no signs of infection. nothing on imaging, no fevers no leukocytosis. will maintain NPO for now till imaging can be obtained. Surgery and GI consulted. hold hepatotoxic agents. pain control 2. Hypokalemia- Kcl 40meq 3. BEA- likely dehydration. now resolved. 4. HTN- currently normotensive off medications. monitor off medication 5. dementia- at baseline per family at bedside. can re-start aricept. 6. DVT ppx- start hep sq 7. spoke with family present at bedside. all questions answered. verbalized understanding and agreement with plan
--- NOTE | 2018-01-21 14:54 | MSN ---
Progress Note (SOAP) - Subjective Chief Complaint: RUQ pain History of Present Illness: Vishal Jacob is an 82 year old male who presented to the hospital after developing abrupt onset, non radiating, sharp, 10/10 right upper quadrant pain. Patient and family stated that the pain came on after eating a meal of chicken, beans, and rice. Patient denied nausea, vomiting, chest pain, shortness of breath, fevers associated with the pain. Patient's family stated that he previously had similar episodes of this kind of pain that were not as severe as the current episode. Patient had taken a medication that was obtained from the [place] for the pain. Patient was recently started on his home medications 2 weeks prior to admission. Abdominal CT showed pericholecystic fluid and gallbladder wall thickening, enlarged prostate, prominent urinary bladder wall, and diverticulum in the duodenum. Abdominal U/S showed contracted gallbladder with cholelithasis, wall thickeining and pericholecystic fluid. On admission, patient had elevated liver enzymes AST 1830 and ALT 2141, Alk Phos 254, total bilirubin 3.4, and elevated renal function test BUN 23, CRE 1.4. Currently liver function tests are improved to AST 508, ALT 965, Alk phos 158, total bilirubin 3.3, direct bilrubin 2.5. Renal function improved to BUN 18, CRE 1.1. Patient was seen and examined at the bedside. Patient complained of mild abdominal pain mainly in the right upper quadrant. Patient did endorse some constipation and family stated that his last bowel movement was 2 days ago. Patient denied nausea, vomiting, diarrhea, fever, chills, chest pain, shortness of breath, headaches. - Current Medications Current Medications: Active Medications Sodium Chloride (Normal Saline -) 1,000 mls @ 125 mls/hr IV ASDIR [facility] Last Admin: 01/21/18 02:03 Dose: 125 mls/hr - Objective Vital Signs: Vital Signs Temperature 98.6 F 01/21/18 08:49 Pulse Rate 71 01/21/18 08:49 Respiratory Rate 20 01/21/18 09:00 Blood Pressure 123/76 01/21/18 08:49 O2 Sat by Pulse Oximetry (%) 95 01/21/18 09:00 Constitutional: Yes: Well Nourished, No Distress, Calm Eyes: Yes: WNL, Conjunctiva Clear, EOM Intact, PERRL HENT: Yes: WNL, Atraumatic, Normocephalic Neck: Yes: WNL, Supple, Trachea Midline Cardiovascular: Yes: WNL, Regular Rate and Rhythm, S1, S2 Respiratory: Yes: WNL, Regular, CTA Bilaterally Gastrointestinal: Yes: Normal Bowel Sounds, Soft, Tenderness (mainly in the RUQ) ...Rectal Exam: Yes: Deferred Musculoskeletal: Yes: WNL Extremities: Yes: WNL Peripheral Pulses WNL: Yes Peripheral Pulses: Left Radial: 2+, Right Radial: 2+, Left Doralis Pedis: 2+, Right Dorsalis Pedis: 2+ Edema: No Integumentary: Yes: WNL Neurological: Yes: WNL, Alert, Oriented, Other (patient has baseline dementia and was mildly confused to questioning) ...Motor Strength: Yes: WNL Psychiatric: Yes: WNL, Alert, Oriented Labs Lab Results: CBC, BMP 01/21/18 06:00 01/21/18 06:00 Problem List - Problems (1) Abdominal pain Code(s): R10.9 - UNSPECIFIED ABDOMINAL PAIN (2) Alzheimers disease Code(s): G30.9 - ALZHEIMER'S DISEASE, UNSPECIFIED; F02.80 - DEMENTIA IN OTH DISEASES CLASSD ELSWHR W/O BEHAVRL DISTURB Qualifiers: Alzheimer's disease onset: unspecified onset Dementia behavioral disturbance: with behavioral disturbance Qualified Code(s): G30.9 - Alzheimer' s disease, unspecified; F02.81 - Dementia in other diseases classified elsewhere with behavioral disturbance; F02.81 - Dementia in other diseases classified elsewhere with behavioral disturbance; F02.81 - Dementia in other diseases classified elsewhere with behavioral disturbance (3) Elevated liver enzymes Code(s): R74.8 - ABNORMAL LEVELS OF OTHER SERUM ENZYMES (4) Transaminitis Code(s): R74.0 - NONSPEC ELEV OF LEVELS OF TRANSAMNS & LACTIC ACID DEHYDRGNSE Assessment/Plan Patient is an 82y/o male with a PMHx of HTN, Alzheimer's dementia who presented to the hospital with non-radiating, abrupt onset, 10/10 RUQ pain after consuming food and found to have elevated liver enzymes. Acute Transaminitis -AST 1830 ALT 2141 on admission, improved to AST 508 ALT 965 on 01/21 -Bilirubin 3.4 on admission, improved to Total Bilirubin 3.3 Direct Bilirubin 2.5 -Possibly secondary to medication meloxicam or unknown medication obtained from [facility] -Rule out cholelithiasis as per patient's history -Ct showed pericholecystic fluid and gallbladder wall thickening -Abd US showed contracted gallbladder with cholelithiasis, wall thickening and pericholcystic fluid -Levaquin and Flagyl given in ED, now discontinued due to low probability of cholecystitis -Renal function improved, patient will undergo MRCP for better visualization -Surgical consult appreciated, may need to have cholestectomy for repeated episodes of biliary colic -Remain NPO pending testing -Follow up with hepatitis serology panel -Zoloft and meloxicam held due to hepatoxocity side effects Acute Kidney Injury -BUN 23, CRE 1.4, improved to BUN 18, CRE 1.1 on 01/21 -likely due to dehydration, continue fluids Hypokalemia -On 01/21 K 3.3 -30mEq in dextrose given -Monitor for improvement Hypertension -home amlodipine held -currently normotensive -continue to monitor Alzheimer's Dementia -Aricept 5mg daily F/E/N -NS at 125cc/hr -hypokalemia addressed -NPO pending MRCP DVT Prophylaxis -Heparin 5000mg tid Disposition -On Med/Surg floor
[2018-01-21] MEDS: DEXTROSE 5%-0.45% SALINE 1,000 ML IV SCH (18:38)
[2018-01-21] MEDS: OMEGA-3 ACID ETHYL ESTERS (FATTY-ACIDS) 1 GM CAPSULE (FP) PO SCH (22:13)
[2018-01-21] MEDS: DONEPEZIL HCL 5 MG TABLET (FP) PO SCH (22:13)
--- NOTE | 2018-01-21 22:34 | PN ---
Progress Note, Physician History of Present Illness: Pt with elevated LFTs including bili with normal lipase and wbc. Renal function improving with hydration. Pt seen and examined resting in bed. Indicates no pain , feeling much better. Had MRCP, read pending. Limited exam - present, pt trying to sleep. Low grade temp earlier, no nausea. - Current Medication List Current Medications: Active Medications Donepezil HCl (Aricept -) 5 mg PO HS SHANA Last Admin: 01/21/18 22:13 Dose: Not Given Dextrose/Sodium Chloride (D5-1/2ns -) 1,000 mls @ 100 mls/hr IV ASDIR SHANA Last Admin: 01/21/18 18:38 Dose: 100 mls/hr Multivit/Ca Carb/B Cmplx/FA/Prenat (Nephro-Adonay -) 1 tablet PO DAILY SHANA Ukbrx-4-Fplt Ethyl Esters (Lovaza -) 2 gm PO BID [facility] Last Admin: 01/21/18 22:13 Dose: Not Given - Objective Vital Signs: Vital Signs Temperature 99.5 F 01/21/18 18:00 Pulse Rate 99 H 01/21/18 18:00 Respiratory Rate 20 01/21/18 18:00 Blood Pressure 129/91 01/21/18 18:00 O2 Sat by Pulse Oximetry (%) 95 01/21/18 09:00 Vital Signs Period Temp Pulse Resp BP Sys/Calles Pulse Ox Last 24 Hr 98.6 F-100.6 F 66-99 20-20 114-129/61-91 95 Constitutional: Yes: Well Nourished, No Distress, Calm Eyes: Yes: Conjunctiva Clear, EOM Intact HENT: Yes: Atraumatic, Normocephalic Gastrointestinal: Yes: Soft, Distention (less). No: Tenderness, Tenderness, Epigastrium ...Rectal Exam: Yes: Deferred Extremities: No: Cool, Cyanosis Integumentary: No: Jaundice, Rash Neurological: Yes: Alert, Oriented Labs: CBC, BMP 01/21/18 06:00 01/21/18 06:00 INR, PTT INR 1.36 (0.82-1.09) H D 01/21/18 06:00 CMP Sodium 142 mmol/L (136-145) 01/21/18 06:00 Potassium 3.3 mmol/L (3.5-5.1) L 01/21/18 06:00 Chloride 111 mmol/L (98-107) H 01/21/18 06:00 Carbon Dioxide 23 mmol/L (21-32) 01/21/18 06:00 Anion Gap 8 (8-16) 01/21/18 06:00 BUN 18 mg/dL (7-18) D 01/21/18 06:00 Creatinine 1.1 mg/dL (0.7-1.3) D 01/21/18 06:00 Creat Clearance w eGFR > 60 (>60) 01/21/18 06:00 Random Glucose 97 mg/dL (74-106) D 01/21/18 06:00 Calcium 7.1 mg/dL (8.5-10.1) L D 01/21/18 06:00 Phosphorus 2.1 mg/dL (2.5-4.9) L 01/21/18 06:00 Magnesium 1.9 mg/dL (1.8-2.4) 01/21/18 06:00 Total Bilirubin 3.3 mg/dL (0.2-1.0) H 01/21/18 06:00 Direct Bilirubin 2.5 mg/dL (0.0-0.2) H 01/21/18 06:00 AST 508 U/L (15-37) H D 01/21/18 06:00 ALT 965 U/L (12-78) H D 01/21/18 06:00 Alkaline Phosphatase 158 U/L (45-117) H D 01/21/18 06:00 Ammonia 29.25 umol/L (11-32) 01/21/18 06:00 Creatine Kinase 132 IU/L (39-308) 01/20/18 13:55 Troponin I 0.03 ng/ml (0.00-0.05) 01/20/18 13:55 B-Natriuretic Peptide 1098.62 pg/ml (5-450) H 01/20/18 13:55 Total Protein 5.3 g/dl (6.4-8.2) L D 01/21/18 06:00 Albumin 2.5 g/dl (3.4-5.0) L D 01/21/18 06:00 Lipase 82 U/L (73-393) 01/21/18 06:00 - ....Imaging Ultrasound: Report Reviewed (gallstones in contracted gallbladder with 4-5mm wall, sm amt of pericholecystic fluid, 8mm proximal CBD) MRI: Pending (report), Image Reviewed Problem List - Problems (1) Elevated liver enzymes Assessment/Plan: continue NPO/IVF trend labs ammonia was normal nonnarcotic pain meds as able prn GI/DVT prophylaxis CT/US with contracted gallbladder with stones in neck, elevated LFTs MRCP done, report pending will follow up tomorrow Code(s): R74.8 - ABNORMAL LEVELS OF OTHER SERUM ENZYMES (2) Epigastric pain Assessment/Plan: resolved Code(s): R10.13 - EPIGASTRIC PAIN (3) Other abnormalities of gait and mobility Code(s): R26.89 - OTHER ABNORMALITIES OF GAIT AND MOBILITY (4) Dehydration Assessment/Plan: improving with IVF resuscitation and maintenance continue fluids - NPO and s/p MRI w/contrast Code(s): E86.0 - DEHYDRATION (5) Altered mental status Assessment/Plan: increased confusion and forgetfulness per family - unclear baseline ammonia normal Code(s): R41.82 - ALTERED MENTAL STATUS, UNSPECIFIED Qualifiers: Altered mental status type: disorientation Qualified Code(s): R41.0 - Disorientation, unspecified (6) Alzheimers disease Code(s): G30.9 - ALZHEIMER'S DISEASE, UNSPECIFIED; F02.80 - DEMENTIA IN OTH DISEASES CLASSD ELSWHR W/O BEHAVRL DISTURB Qualifiers: Alzheimer's disease onset: unspecified onset Dementia behavioral disturbance: with behavioral disturbance Qualified Code(s): G30.9 - Alzheimer' s disease, unspecified; F02.81 - Dementia in other diseases classified elsewhere with behavioral disturbance; F02.81 - Dementia in other diseases classified elsewhere with behavioral disturbance; F02.81 - Dementia in other diseases classified elsewhere with behavioral disturbance
[2018-01-22] MEDS: DONEPEZIL HCL 5 MG TABLET (FP) PO SCH (00:54)
[2018-01-22 06:07] LABS: HEP.C VIRUS AB <0.1 s/co ratio (0.0-0.9)
--- NOTE | 2018-01-22 06:42 | PN ---
Physical Exam: SUBJECTIVE: Patient seen and examined - No major overnight events. Pt febrile to 100.6. VSS. MRCP performed last night , official read pending - Per pt, no f/c/n/v/d, CP, ab pain, back pain, peripheral edema, focal neuro deficits; Pt NPO after midnight pending possible lap kashif; No BM overnight; Slept well OBJECTIVE: Vital Signs Intake & Output 01/19/18 01/20/18 01/21/18 01/22/18 23:59 23:59 23:59 23:59 Intake Total 2300 Output Total 800 200 Balance 1500 -200 Weight 76.204 kg Period Temp Pulse Resp BP Sys/Calles Pulse Ox Last 24 Hr 98.0 F-100.6 F 66-99 18-20 120-129/62-91 95-95 GENERAL: Elderly man, NAD HEAD: Normal with no signs of trauma. EYES: PERRL, extraocular movements intact, sclera anicteric, conjunctiva clear. No ptosis. ENT: Ears normal, nares patent, oropharynx clear without exudates, moist mucous membranes. NECK: Trachea midline, full range of motion, supple. LUNGS: Breath sounds equal, CTABL, no wheezes, no crackles, no accessory muscle use. HEART/CHEST: numerous AK on anterior chest wall. Regular rate and rhythm, S1, S2 without murmur, rub or gallop. ABDOMEN: Soft, ND, NT. Normoactive bowel sounds, no guarding, no rebound, no hepatosplenomegaly, no masses. EXTREMITIES: 2+ DP/PT pulses BL, warm, well-perfused, no edema. NEUROLOGICAL: Cranial nerves II through XII grossly intact. Normal speech, gait not observed. PSYCH: Normal mood, normal affect. Alert SKIN: Warm, dry, normal turgor, no rashes or lesions noted Laboratory Results - last 24 hr CBC, BMP 01/22/18 07:00 01/22/18 07:00 01/21/18 06:00 01/21/18 06:00 01/20/18 01/21/18 01/21/18 13:55 06:00 06:00 WBC 5.7 D RBC 4.14 Hgb 12.4 D Hct 36.6 D MCV 88.3 MCH 29.9 MCHC 33.8 RDW 13.8 Plt Count 138 D MPV 8.8 PT with INR 15.40 H INR 1.36 H D Sodium 140 Potassium 3.6 Chloride 101 Carbon Dioxide 26 Anion Gap 13 BUN 23 H Creatinine 1.4 H Creat Clearance w eGFR 48.76 Random Glucose 135 H Calcium 9.0 Phosphorus Magnesium Total Bilirubin 3.4 H Direct Bilirubin 2.1 H AST 1830 H ALT 2141 H Alkaline Phosphatase 254 H Ammonia Total Protein 7.7 Albumin 3.7 Lipase Hepatitis A IgM Ab Hep Bs Antigen Hep B Core IgM Ab Hepatitis C Antibody 01/21/18 01/21/18 01/21/18 06:00 06:00 06:00 WBC RBC Hgb Hct MCV MCH MCHC RDW Plt Count MPV PT with INR INR Sodium 142 Potassium 3.3 L Chloride 111 H Carbon Dioxide 23 Anion Gap 8 BUN 18 D Creatinine 1.1 D Creat Clearance w eGFR > 60 Random Glucose 97 D Calcium 7.1 L D Phosphorus 2.1 L Magnesium 1.9 Total Bilirubin 3.3 H Direct Bilirubin AST 508 H D ALT 965 H D Alkaline Phosphatase 158 H D Ammonia Total Protein 5.3 L D Albumin 2.5 L D Lipase Cancelled Hepatitis A IgM Ab Negative Hep Bs Antigen Negative Hep B Core IgM Ab Negative Hepatitis C Antibody <0.1 01/21/18 01/21/18 01/21/18 06:00 06:00 06:00 WBC RBC Hgb Hct MCV MCH MCHC RDW Plt Count MPV PT with INR INR Sodium Cancelled Potassium Cancelled Chloride Cancelled Carbon Dioxide Cancelled Anion Gap Cancelled BUN Cancelled Creatinine Cancelled Creat Clearance w eGFR Cancelled Random Glucose Cancelled Calcium Cancelled Phosphorus Magnesium Total Bilirubin Cancelled Direct Bilirubin 2.5 H Cancelled AST Cancelled ALT Cancelled Alkaline Phosphatase Cancelled Ammonia 29.25 Total Protein Cancelled Albumin Cancelled Lipase 82 Hepatitis A IgM Ab Hep Bs Antigen Hep B Core IgM Ab Hepatitis C Antibody Active Medications Generic Name Dose Route Start Last Admin Trade Name Freq PRN Reason Stop Dose Admin Donepezil HCl 5 mg 01/21/18 22:00 01/22/18 00:54 Aricept - PO 5 mg HS SHANA Administration Dextrose/Sodium Chloride 1,000 mls @ 100 mls/hr 01/21/18 16:15 01/21/18 18:38 D5-1/2ns - IV 100 mls/hr ASDIR SHANA Administration Multivit/Ca Carb/B Cmplx/FA/Prenat 1 tablet 01/22/18 10:00 Nephro-Adonay - PO DAILY SHANA Tmhra-6-Epzr Ethyl Esters 2 gm 01/21/18 22:00 01/21/18 22:13 Lovaza - PO Not Given BID SHANA Sertraline HCl 100 mg 01/22/18 10:00 Zoloft - PO DAILY SHANA No micro CXR /2 - IMPRESSION: Small left pleural effusion versus chronic pleural thickening with subsegmental atelectasis versus consolidation in the left lung base. Please correlate clinically. Head CT 4/2 - Impression: Moderate atrophy. No gross evidence of a focal intracranial lesion or hemorrhage is seen. Correlate clinically to determine further evaluation and follow-up Ab CT/pelvis 4/2 -IMPRESSION: 1. Contracted gallbladder with pericholecystic fluid and/or gallbladder wall thickening. Please correlate clinically and with right upper quadrant ultrasound. 2. Enlarged prostate gland with nonspecific subcentimeter hypodensity in the right lobe. Please correlate with PSA and physical exam. 3. Circumferentially prominent urinary bladder wall may be secondary to underdistention and/or chronic outlet obstruction, although cystitis cannot be excluded. Please correlate clinically with urinalysis. 4. Please refer to the report above for other findings. RUQ U/S 4/2 - IMPRESSION: 1. Contracted gallbladder with pericholecystic fluid and/or gallbladder wall thickening. Please correlate clinically and with right upper quadrant ultrasound. 2. Enlarged prostate gland with nonspecific subcentimeter hypodensity in the right lobe. Please correlate with PSA and physical exam. 3. Circumferentially prominent urinary bladder wall may be secondary to underdistention and/or chronic outlet obstruction, although cystitis cannot be excluded. Please correlate clinically with urinalysis. 4. Please refer to the report above for other findings. MRCP 01/21 -IMPRESSION: 1. Extremely limited exam secondary to image degradation from patient motion on all sequences. 2. No pathologic bile duct or pancreatic ductal dilatation. No definite choledocholithiasis, bile duct mass or pancreatic mass. 3. Physiologic gallbladder distention with mild gallbladder wall thickening and pericholecystic fluid. Cholelithiasis seen on ultrasound is not identified on this MRI. Please correlate clinically for cholecystitis. ASSESSMENT/PLAN: 82 year old male with a history of dementia and hypertension presents to the hospital with 24 hour history of abdominal pain suspect for possible choledocholithiasis vs cholecystitis. Possible surgery pending MRCP. #RUQ pain - Improve today; likely secondary to choledocholithiasis vs cholecystitis/biliary colic; CT Abd -pericholecystic fluid, shrunken gallbladder , gallbladder wall thickening; ammonia 29; lipase 143; T bili 3.3 -> 1.5 today; MRCP results as noted above - LFTs normalizing -minimal pain on ab exam today -Will go to OR in PM for lap kashif -NPO for now -GI consulted, recs appreciated -Surgery consulted, following -f/u lipid panel -hep panel negative -cont to trend LFTs -IVFs - possible d/c tomorrow pending further improvement in LFTs and no surgical issues #Transaminitis - continues improving, likely secondary to possible obstruction vs. medication induced (mobic/zoloft); resolving now -AST/ALT cont downtrending at 508/965 -> 205/141 respectively, alk phos 158 -> 141 - continue to trend #Acute Kidney Injury: unknown baseline; Cr 1.1 -> 0.9 - IVFs - Trend - avoid nephrotoxic agents #Hypokalemia - 3.4 today - KCL 40 teto #Hypertension- chronic; BP well controlled on admission -hold home amlodipine #Dementia- - c/w home aricept #Depression- - Hold home zoloft as potentially hepatotoxic #FEN -d5w-1/2ns +40 Kcl 75 cc/hr -Daily lytes -NPO until lap kashif, then clears #Prophylaxis -Hold HSQ prior to surgery, then restart #Disposition -M/S Plan discussed with attending, Dr. Danish Castro, PGY1 Visit type - Emergency Visit Emergency Visit: Yes ED Registration Date: 01/20/18 Care time: The patient presented to the Emergency Department on the above date and was hospitalized for further evaluation of their emergent condition. - New Patient This patient is new to me today: No - Critical Care Critical Care patient: No - Discharge Referral Referred to [facility] Med [facility].C.: No
[2018-01-22] MEDS: DEXTROSE 5%-0.45% SALINE 1,000 ML IV SCH (07:05)
[2018-01-22 07:10] LABS: BASO % 0.3 % (0-2.0); EOS % 4.5 % (0-4.5); HEMATOCRIT 37.7 % (35.4-49); HEMOGLOBIN 12.9 GM/dL (11.7-16.9); LYMPH % 8.4 % (8-40); MCHC 34.1 g/dl (32.0-35.9); MEAN CELL VOLUME 88.1 fl (80-96); MEAN PLT VOLUME 8.9 fl (7.5-11.1); MONO % 11.1 % (3.8-10.2); NEUT % 75.7 % (42.8-82.8); PLATELET COUNT 136 K/MM3 (134-434); RBC 4.28 M/mm3 (4.00-5.60); RDW 14.3 % (11.9-15.9); WHITE BLOOD COUNT 4.5 K/mm3 (4.0-10.0)
[2018-01-22 07:31] LABS: ALBUMIN 2.6 g/dl (3.4-5.0); ANION GAP 8 (8-16); BILIRUBIN,TOTAL 1.5 mg/dL (0.2-1.0); BLOOD UREA NITROGEN 13 mg/dL (7-18); CALCIUM 7.2 mg/dL (8.5-10.1); CHLORIDE 109 mmol/L (98-107); CO2 24 mmol/L (21-32); CREATININE 0.9 mg/dL (0.7-1.3); GLUCOSE,RANDOM 127 mg/dL (74-106); POTASSIUM 3.4 mmol/L (3.5-5.1); SGOT/AST 205 U/L (15-37); SODIUM 141 mmol/L (136-145); TOT PROT 5.6 g/dl (6.4-8.2)
[2018-01-22 07:32] LABS: ALK PHOS 141 U/L (45-117); INR 1.08 (0.82-1.09); PROTHROMBIN TIME (PATIENT) 12.2 SEC (9.98-11.88)
[2018-01-22 07:40] LABS: SGPT/ALT 640 U/L (12-78)
[2018-01-22] MEDS ORDERED: ALPRAZolam 0.25 MG TABLET PO PRN (08:30)
[2018-01-22] MEDS ORDERED: D5-1/2NS+40 MEQ KCL - 40 MEQ/1,000 ML INFUS.BAG IV SCH ×2 (09:00→21:28)
[2018-01-22] MEDS: OMEGA-3 ACID ETHYL ESTERS (FATTY-ACIDS) 1 GM CAPSULE (FP) PO SCH ×2 (09:51→23:11)
[2018-01-22] MEDS ORDERED: VITAMIN B COMP W-C 1 EA TABLET PO SCH (10:00)
[2018-01-22] MEDS ORDERED: SERTRALINE HCL 50 MG TABLET (FP) PO SCH (10:00)
--- NOTE | 2018-01-22 10:52 | MSN ---
Progress Note (SOAP) - Subjective Chief Complaint: RUQ pain History of Present Illness: Patient was seen and examined at the bedside. Patient did not have any overnight events. Patient walked 100 feet with physical therapy. MRCP was done and showed no pathologic bile duct or pancreatic duct dilation with no stones, bile duct or pancreatic masses as well as confirming physiologic gallbladder distension with mild gallbladder wall thickening and pericholecystic fluid. Patient endorsed mild RUQ pain with palpation. Patient noted that he had not voided his bowels since admission. Patient denied chest pain, shortness of breath, headaches, leg or arm pain, nausea, vomiting, fevers, chills. - Current Medications Current Medications: Active Medications Alprazolam (Xanax -) 0.5 mg PO ONCE PRN PRN Reason: AGITATION Stop: 01/22/18 11:00 Last Admin: 01/22/18 09:25 Dose: 0.5 mg Donepezil HCl (Aricept -) 5 mg PO [facility] Last Admin: 01/22/18 00:54 Dose: 5 mg Dextrose/Sodium Chloride (D5-1/2ns+40 Meq Kcl -) 40 meq in 1,000 mls @ 75 mls/ hr IV ASDIR [facility] Last Admin: 01/22/18 09:30 Dose: 75 mls/hr Multivit/Ca Carb/B Cmplx/FA/Prenat (Nephro-Adonay -) 1 tablet PO DAILY [facility] Last Admin: 01/22/18 09:51 Dose: Not Given Gsquj-6-Ucsr Ethyl Esters (Lovaza -) 2 gm PO BID [facility] Last Admin: 01/22/18 09:51 Dose: Not Given Sertraline HCl (Zoloft -) 100 mg PO DAILY [facility] - Objective Vital Signs: Vital Signs Temperature 98.4 F 01/22/18 06:00 Pulse Rate 62 01/22/18 06:00 Respiratory Rate 18 01/22/18 06:00 Blood Pressure 125/72 01/22/18 06:00 O2 Sat by Pulse Oximetry (%) 95 01/21/18 21:00 Constitutional: Yes: Well Nourished, No Distress, Calm Eyes: Yes: WNL, Conjunctiva Clear, EOM Intact HENT: Yes: WNL, Atraumatic, Normocephalic Neck: Yes: WNL, Supple, Trachea Midline Cardiovascular: Yes: WNL, Regular Rate and Rhythm, S1, S2 Respiratory: Yes: WNL, Regular, CTA Bilaterally Gastrointestinal: Yes: Normal Bowel Sounds, Soft, Distention (mild distension), Tenderness (mild tenderness in RUQ) ...Rectal Exam: Yes: Deferred Musculoskeletal: Yes: WNL Extremities: Yes: WNL Peripheral Pulses WNL: Yes Peripheral Pulses: Left Radial: 2+, Right Radial: 2+, Left Doralis Pedis: 2+, Right Dorsalis Pedis: 2+ Edema: No Integumentary: Yes: WNL Neurological: Yes: WNL, Alert, Oriented ...Motor Strength: Yes: WNL Psychiatric: Yes: WNL, Alert, Oriented Labs Lab Results: CBC, BMP 01/22/18 07:00 01/22/18 07:00 Problem List - Problems (1) Abdominal pain Code(s): R10.9 - UNSPECIFIED ABDOMINAL PAIN (2) Alzheimers disease Code(s): G30.9 - ALZHEIMER'S DISEASE, UNSPECIFIED; F02.80 - DEMENTIA IN OTH DISEASES CLASSD ELSWHR W/O BEHAVRL DISTURB Qualifiers: Alzheimer's disease onset: unspecified onset Dementia behavioral disturbance: with behavioral disturbance Qualified Code(s): G30.9 - Alzheimer' s disease, unspecified; F02.81 - Dementia in other diseases classified elsewhere with behavioral disturbance; F02.81 - Dementia in other diseases classified elsewhere with behavioral disturbance; F02.81 - Dementia in other diseases classified elsewhere with behavioral disturbance (3) Elevated liver enzymes Code(s): R74.8 - ABNORMAL LEVELS OF OTHER SERUM ENZYMES (4) Transaminitis Code(s): R74.0 - NONSPEC ELEV OF LEVELS OF TRANSAMNS & LACTIC ACID DEHYDRGNSE Assessment/Plan Patient is an 82y/o male with a PMHx of HTN, Alzheimer's dementia who presented to the hospital with non-radiating, abrupt onset, 10/10 RUQ pain after consuming food and found to have elevated liver enzymes. Acute Transaminitis -AST 1830 ALT 2141 on admission, improved to AST 508 ALT 965 on 01/21, improved to AST 205 ALT 640 on 01/22 -Bilirubin 3.4 on admission, improved to Total Bilirubin 3.3 Direct Bilirubin 2.5, improved to Direct Bilirubin 1.5 on 01/22 -Possibly secondary to medication meloxicam or unknown medication obtained from [facility] -Ct showed pericholecystic fluid and gallbladder wall thickening -Abd US showed contracted gallbladder with cholelithiasis, wall thickening and pericholcystic fluid -MRCP showed gallbladder dilation with wall thickening and pericholecystic fluid -Levaquin and Flagyl given in ED, now discontinued due to low probability of cholecystitis -Renal function improved -Surgical consult appreciated, will undergo cholecystectomy due to repeated episodes of biliary colic -Remain NPO pending surgery -Hepatitis serology panel is negative -Zoloft and meloxicam held due to hepatoxocity side effects Acute Kidney Injury -BUN 23, CRE 1.4, improved to BUN 18, CRE 1.1 on 01/21, improved to BUN 13 CRE 0.9 -likely due to dehydration, continue fluids Hypokalemia -On 01/21 K 3.3, on 01/22 3.4 -30mEq in dextrose given -40mEQ in D5W 1/2NS given -Monitor for improvement Hypertension -home amlodipine held -currently normotensive -continue to monitor Alzheimer's Dementia -Aricept 5mg daily F/E/N -D5W 1/2NS w/ 40mEq KCl -hypokalemia addressed -NPO pending cholecystectomy DVT Prophylaxis -Heparin 5000mg tid Disposition -On Med/Surg floor
--- NOTE | 2018-01-22 11:16 | PN ---
Teaching Attending Note Name of Resident: Jeffery Castro ATTENDING PHYSICIAN STATEMENT I saw and evaluated the patient. I reviewed the resident's note and discussed the case with the resident. I agree with the resident's findings and plan as documented. SUBJECTIVE:pain improved. requesting to eat. denies Cp, SOB, fever, chills, N/V/ C/D OBJECTIVE: Last Vital Signs Temp Pulse Resp BP Pulse Ox 98.4 F 62 18 125/72 95 01/22/18 06:00 01/22/18 06:00 01/22/18 06:00 01/22/18 06:00 01/21/18 21:00 General NAD CV S1 S2 RRR no murmur/rub/gallop Lungs CTA B/L no wheezing/rales/rhonchi Abdomen soft + bond sign. ND/NT ASSESSMENT AND PLAN: 82yo M with PMH HTN and dementia presenting with abdominal pain and found to have acute transaminitis 1. Acute transaminitis- likely medication induced (mobic/zoloft) although can not r/o passage of gallstone. low grade fever last night. MRCP negative for cholecystitis/choledocholithasis. CBD WNL, LFT trending down. NPO for lap cholecystectomy today. will monitor LFT after surgery. advance to clear liquids after surgery.Surgery and GI consulted. hold hepatotoxic agents. pain control 2. Hypokalemia- Kcl 40meq 3. BEA- likely dehydration. now resolved. 4. HTN- currently normotensive off medications. monitor off medication 5. dementia- at baseline per family at bedside. on aricept. explained to family to f/u with PMD for either re-starting zoloft or starting an alternative agent 6. DVT ppx- hep sq 7. spoke with family present at bedside. all questions answered. verbalized understanding and agreement with plan. possible d/c tomorrow pending surgery and LFT
--- NOTE | 2018-01-22 15:27 | PN ---
Progress Note, Physician History of Present Illness: Pt with elevated LFTs including bili, with normal lipase and wbc, now trending down. Renal function improving with hydration. Pt seen and examined resting in bed, and daughter at bedside. He had some medication, and is essentially sleeping. Does not answer questions at this time. Seems comfortable. Per nurse, was up walking earlier. - Current Medication List Current Medications: Active Medications Donepezil HCl (Aricept -) 5 mg PO HS [facility] Last Admin: 01/22/18 00:54 Dose: 5 mg Dextrose/Sodium Chloride (D5-1/2ns+40 Meq Kcl -) 40 meq in 1,000 mls @ 75 mls/ hr IV ASDIR [facility] Last Admin: 01/22/18 09:30 Dose: 75 mls/hr Multivit/Ca Carb/B Cmplx/FA/Prenat (Nephro-Adonay -) 1 tablet PO DAILY [facility] Last Admin: 01/22/18 09:51 Dose: Not Given Dgjmq-4-Ankn Ethyl Esters (Lovaza -) 2 gm PO BID [facility] Last Admin: 01/22/18 09:51 Dose: Not Given Sertraline HCl (Zoloft -) 100 mg PO DAILY [facility] - Objective Vital Signs: Vital Signs Temperature 98.4 F 01/22/18 06:00 Pulse Rate 60 01/22/18 11:00 Respiratory Rate 18 01/22/18 11:00 Blood Pressure 130/76 01/22/18 11:00 O2 Sat by Pulse Oximetry (%) 94 L 01/22/18 09:00 Vital Signs Period Temp Pulse Resp BP Sys/Calles Pulse Ox Last 24 Hr 98.0 F-99.5 F 60-99 18-20 125-130/71-91 94-95 Constitutional: Yes: Well Nourished, No Distress, Calm Gastrointestinal: Yes: Soft, Distention (minimal/protuberant). No: Tenderness ( does not react to exam - no apparent tenderness) ...Rectal Exam: Yes: Deferred Musculoskeletal: No: Joint Stiffness, Joint Swelling Extremities: No: Cool, Cyanosis Integumentary: No: Jaundice, Rash Neurological: Yes: Confusion (baseline Alzheimer's (though not very awake right now)). No: Alert (somnolent) Labs: CBC, BMP 01/22/18 07:00 01/22/18 07:00 INR, PTT INR 1.08 (0.82-1.09) 01/22/18 07:00 CMP Sodium 141 mmol/L (136-145) 01/22/18 07:00 Potassium 3.4 mmol/L (3.5-5.1) L 01/22/18 07:00 Chloride 109 mmol/L (98-107) H 01/22/18 07:00 Carbon Dioxide 24 mmol/L (21-32) 01/22/18 07:00 Anion Gap 8 (8-16) 01/22/18 07:00 BUN 13 mg/dL (7-18) D 01/22/18 07:00 Creatinine 0.9 mg/dL (0.7-1.3) 01/22/18 07:00 Creat Clearance w eGFR > 60 (>60) 01/22/18 07:00 Random Glucose 127 mg/dL (74-106) H D 01/22/18 07:00 Calcium 7.2 mg/dL (8.5-10.1) L 01/22/18 07:00 Total Bilirubin 1.5 mg/dL (0.2-1.0) H D 01/22/18 07:00 AST 205 U/L (15-37) H D 01/22/18 07:00 ALT 640 U/L (12-78) H D 01/22/18 07:00 Alkaline Phosphatase 141 U/L (45-117) H 01/22/18 07:00 Total Protein 5.6 g/dl (6.4-8.2) L 01/22/18 07:00 Albumin 2.6 g/dl (3.4-5.0) L 01/22/18 07:00 LFTs decreased - ....Imaging MRI: Report Reviewed (small bit of pericholecystic fluid, stones not appreciated on this exam, no choledocholithiasis, chd ~8mm, cbd ~5mm, no apparent mass, stricture; duodenal diverticulum present), Image Reviewed Problem List - Problems (1) Elevated liver enzymes Assessment/Plan: continue NPO/IVF replete K+ nonnarcotic pain meds as able prn GI/DVT prophylaxis CT/US with contracted gallbladder with stones in neck, elevated LFTs MRCP done with no obvious obstruction, no stones visualized, possible cholecystitis pt without pain or tenderness last night, appears so now as well briefly discussed with family option of laparoscopic possible open cholecystectomy today they are agreeable will have detailed discussion of R/B/A via [place]amanian phone sign language interpreter just prior to OR and pt's will sign consent perioperative antibiotics for surgery today plan resume po postop trend labs in am Code(s): R74.8 - ABNORMAL LEVELS OF OTHER SERUM ENZYMES (2) Other abnormalities of gait and mobility Code(s): R26.89 - OTHER ABNORMALITIES OF GAIT AND MOBILITY (3) Dehydration Assessment/Plan: renal function normal, resolved Code(s): E86.0 - DEHYDRATION (4) Altered mental status Assessment/Plan: increased confusion and forgetfulness per family - unclear baseline on Aricept for Alzheimer's and Zoloft for depression Code(s): R41.82 - ALTERED MENTAL STATUS, UNSPECIFIED Qualifiers: Altered mental status type: disorientation Qualified Code(s): R41.0 - Disorientation, unspecified (5) Alzheimers disease Assessment/Plan: Dr. Mulligan working him up for fidgetiness, forgetfulness, confusion on Aricept Code(s): G30.9 - ALZHEIMER'S DISEASE, UNSPECIFIED; F02.80 - DEMENTIA IN OTH DISEASES CLASSD ELSWHR W/O BEHAVRL DISTURB Qualifiers: Alzheimer's disease onset: unspecified onset Dementia behavioral disturbance: with behavioral disturbance Qualified Code(s): G30.9 - Alzheimer' s disease, unspecified; F02.81 - Dementia in other diseases classified elsewhere with behavioral disturbance; F02.81 - Dementia in other diseases classified elsewhere with behavioral disturbance; F02.81 - Dementia in other diseases classified elsewhere with behavioral disturbance
[2018-01-22] MEDS ORDERED: BUPIVACAINE HCL/PF 0.5% (5MG/ML) 10 ML VIAL ONE (16:04)
[2018-01-22] MEDS ORDERED: LIDOCAINE HCL/PF 2% SDV 5ML VIAL ONE (18:21)
[2018-01-22] MEDS ORDERED: GLYCOPYRROLATE 0.2 MG/1 ML VIAL ONE (18:21)
[2018-01-22] MEDS ORDERED: ROCURONIUM BROMIDE 50 MG/5 ML VIAL ONE (18:22)
[2018-01-22] MEDS ORDERED: fentaNYL CITRATE 250 MCG/5 ML VIAL ONE (18:22)
[2018-01-22] MEDS ORDERED: ceFAZolin SODIUM 1 GM VIAL ONE (19:20)
[2018-01-22] MEDS ORDERED: CEFOXITIN SODIUM 2 GM IVPB ONE (19:22)
[2018-01-22] MEDS ORDERED: BENZOIN/ALOE VERA/STORAX/TOLU 58 ML BOTTLE ONE (19:22)
[2018-01-22] MEDS ORDERED: cefOXitin SODIUM 1 GM VIAL (RESTRICTED TO ID) IVPB ONE (19:24)
[2018-01-22] MEDS ORDERED: BUPIVACAINE HCL/PF 0.5% (5MG/ML) 10 ML VIAL IJ ONE ×2 (19:50→20:30)
[2018-01-22] MEDS ORDERED: NEOSTIGMINE METHYLSULFATE 0.5 MG/ML - 10 ML MDV ONE (20:25)
[2018-01-22] MEDS ORDERED: PROMETHAZINE HCL 25 MG/1 ML VIAL IVPUSH PRN (20:47)
--- NOTE | 2018-01-22 20:55 | OP ---
Operative Note - Note: Operative Date: 01/22/18 Pre-Operative Diagnosis: cholelithiasis with acute cholecystitis Operation: laparoscopic cholecystectomy Findings: fundus adherent to liver, intrahepatic; critical view identified; cystic duct large/bulbous - Weck locking clips used on cystic duct, small bile spillage toward end, irrigated and suctioned Post-Operative Diagnosis: Same as Pre-op Surgeon: Castro Jimenez Artificial Cherry Maker: Robbin Eldridge Anesthesiologist/LINER MACHINE OPERATOR HELPER: Tra Cedillo Anesthesia: General, Local (20ml 0.5% marcaine) Specimens Removed: gallbladder to pathology Estimated Blood Loss (mls): 15 Fluid Volume Replaced (mls): 800 (crystalloid) Operative Report Dictated: Yes
[2018-01-22] MEDS ORDERED: LACTATED RINGERS SOLUTION 1,000 ML IV SCH (21:00)
[2018-01-22] MEDS ORDERED: ACETAMINOPHEN INJECTION 100 ML IVPB ONE (21:11)
[2018-01-22] MEDS: ACETAMINOPHEN 1000 MG/100 ML VIAL (NON FORMULARY) IVPB ONE ×3 (21:12→22:22)
[2018-01-22] MEDS ORDERED: oxyCODONE HCL 5 MG TABLET PO PRN ×2 (21:15→21:28)
[2018-01-22] MEDS ORDERED: CEFOXITIN SODIUM 2 GM in DEXTROSE 5%-WATER - 100 ML IVPB ONE (21:30)
[2018-01-22] MEDS ORDERED: DOCUSATE SODIUM 100 MG CAPSULE (FP) PO SCH (22:00)
[2018-01-22] MEDS ORDERED: DONEPEZIL HCL 5 MG TABLET (FP) PO SCH (22:00)
[2018-01-22] MEDS: DOCUSATE SODIUM 100 MG CAPSULE (FP) PO SCH (23:11)
[2018-01-23] MEDS ORDERED: IBUPROFEN 800 MG/8 ML IJ IVPB ONE ×2 (00:01)
[2018-01-23] MEDS ORDERED: CEFOXITIN SODIUM 2 GM in DEXTROSE 5%-WATER - 100 ML IVPB ONE (02:00)
[2018-01-23] MEDS ORDERED: cefOXitin SODIUM 2 GM VIAL (RESTRICTED TO ID) IVPB ONE (02:00)
[2018-01-23] MEDS ORDERED: IBUPROFEN 600 MG TABLET (FP) PO SCH ×2 (06:00)
[2018-01-23 07:08] LABS: HEMATOCRIT 39.3 % (35.4-49); HEMOGLOBIN 13.2 GM/dL (11.7-16.9); MCH 29.5 pg (25.7-33.7); MCHC 33.5 g/dl (32.0-35.9); MEAN CELL VOLUME 88.1 fl (80-96); PLATELET COUNT 130 K/MM3 (134-434); RBC 4.46 M/mm3 (4.00-5.60); WHITE BLOOD COUNT 9.3 K/mm3 (4.0-10.0)
--- NOTE | 2018-01-23 07:41 | PN ---
Physical Exam: SUBJECTIVE: Patient seen and examined OBJECTIVE: Vital Signs Intake & Output 01/20/18 01/21/18 01/22/18 01/23/18 23:59 23:59 23:59 23:59 Intake Total 2300 3000 850 Output Total 800 1015 Balance 1500 1985 850 Weight 76.204 kg Period Temp Pulse Resp BP Sys/Calles Pulse Ox Last 24 Hr 97.4 F-98.7 F 58-89 16-22 130-171/65-92 92-97 GENERAL: Elderly man, NAD HEAD: Normal with no signs of trauma. EYES: PERRL, extraocular movements intact, sclera anicteric, conjunctiva clear. No ptosis. ENT: Ears normal, nares patent, oropharynx clear without exudates, moist mucous membranes. NECK: Trachea midline, full range of motion, supple. LUNGS: Breath sounds equal, CTABL, no wheezes, no crackles, no accessory muscle use. HEART/CHEST: numerous AK on anterior chest wall. Regular rate and rhythm, S1, S2 without murmur, rub or gallop. ABDOMEN: Soft, ND, NT. Normoactive bowel sounds, no guarding, no rebound, no hepatosplenomegaly, no masses. EXTREMITIES: 2+ DP/PT pulses BL, warm, well-perfused, no edema. NEUROLOGICAL: Cranial nerves II through XII grossly intact. Normal speech, gait not observed. PSYCH: Normal mood, normal affect. Alert SKIN: Warm, dry, normal turgor, no rashes or lesions noted Laboratory Results - last 24 hr CBC, BMP 01/23/18 06:55 01/21/18 01/22/18 01/23/18 06:00 07:00 06:55 WBC 9.3 D RBC 4.46 Hgb 13.2 Hct 39.3 MCV 88.1 MCH 29.5 MCHC 33.5 RDW 14.0 Plt Count 130 L MPV 9.0 Neutrophils % No Result Required. Lymphocytes % No Result Required. Sodium 141 Potassium 3.4 L Chloride 109 H Carbon Dioxide 24 Anion Gap 8 BUN 13 D Creatinine 0.9 Creat Clearance w eGFR > 60 Random Glucose 127 H D Calcium 7.2 L Total Bilirubin 1.5 H D AST 205 H D ALT 640 H D Alkaline Phosphatase 141 H Total Protein 5.6 L Albumin 2.6 L Hepatitis A IgM Ab Negative Hep Bs Antigen Negative Hep B Core IgM Ab Negative Hepatitis C Antibody <0.1 Active Medications Generic Name Dose Route Start Last Admin Trade Name Freq PRN Reason Stop Dose Admin Acetaminophen 500 mg 01/23/18 09:00 Tylenol - PO Q6H SHANA Docusate Sodium 100 mg 01/22/18 22:00 01/22/18 23:11 Colace - PO Not Given BID SHANA Donepezil HCl 5 mg 01/22/18 22:00 01/22/18 23:11 Aricept - PO Not Given HS [facility] Dextrose/Sodium Chloride 40 meq in 1,000 mls @ 75 mls/hr 01/22/18 21:28 01/22 22:23 D5-1/2ns+40 Meq Kcl - IV Not Given [facility] Ibuprofen 600 mg 01/23/18 06:00 01/23/18 05:33 Motrin - PO 600 mg Q6H SHANA Administration Multivit/Ca Carb/B Cmplx/FA/Prenat 1 tablet 01/23/18 10:00 Nephro-Adonay - PO DAILY [facility] Smikj-1-Vssy Ethyl Esters 2 gm 01/22/18 22:00 01/22/18 23:11 Lovaza - PO Not Given BID [facility] Oxycodone HCl 5 mg 01/22/18 21:28 Roxicodone - PO Q6H PRN PAIN LEVEL 7 - 10 Sertraline HCl 100 mg 01/23/18 10:00 Zoloft - PO DAILY [facility] No micro CXR 01/20 - IMPRESSION: Small left pleural effusion versus chronic pleural thickening with subsegmental atelectasis versus consolidation in the left lung base. Please correlate clinically. Head CT 01/20 - Impression: Moderate atrophy. No gross evidence of a focal intracranial lesion or hemorrhage is seen. Correlate clinically to determine further evaluation and follow-up Ab CT/pelvis 2 -IMPRESSION: 1. Contracted gallbladder with pericholecystic fluid and/or gallbladder wall thickening. Please correlate clinically and with right upper quadrant ultrasound. 2. Enlarged prostate gland with nonspecific subcentimeter hypodensity in the right lobe. Please correlate with PSA and physical exam. 3. Circumferentially prominent urinary bladder wall may be secondary to underdistention and/or chronic outlet obstruction, although cystitis cannot be excluded. Please correlate clinically with urinalysis. 4. Please refer to the report above for other findings. RUQ U/S 01/20 - IMPRESSION: 1. Contracted gallbladder with pericholecystic fluid and/or gallbladder wall thickening. Please correlate clinically and with right upper quadrant ultrasound. 2. Enlarged prostate gland with nonspecific subcentimeter hypodensity in the right lobe. Please correlate with PSA and physical exam. 3. Circumferentially prominent urinary bladder wall may be secondary to underdistention and/or chronic outlet obstruction, although cystitis cannot be excluded. Please correlate clinically with urinalysis. 4. Please refer to the report above for other findings. MRCP 01/21 -IMPRESSION: 1. Extremely limited exam secondary to image degradation from patient motion on all sequences. 2. No pathologic bile duct or pancreatic ductal dilatation. No definite choledocholithiasis, bile duct mass or pancreatic mass. 3. Physiologic gallbladder distention with mild gallbladder wall thickening and pericholecystic fluid. Cholelithiasis seen on ultrasound is not identified on this MRI. Please correlate clinically for cholecystitis. ASSESSMENT/PLAN: 82 year old male with a history of dementia and hypertension presents to the hospital with 24 hour history of abdominal pain suspect for possible choledocholithiasis vs cholecystitis. Possible surgery pending MRCP. #RUQ pain - Improve today; likely secondary to choledocholithiasis vs cholecystitis/biliary colic; CT Abd -pericholecystic fluid, shrunken gallbladder , gallbladder wall thickening; ammonia 29; lipase 143; T bili 3.3 -> 1.5 today; MRCP results as noted above - LFTs normalizing -minimal pain on ab exam today -Will go to OR in PM for lap kashif -NPO for now -GI consulted, recs appreciated -Surgery consulted, following -f/u lipid panel -hep panel negative -cont to trend LFTs -IVFs - possible d/c tomorrow pending further improvement in LFTs and no surgical issues #Transaminitis - continues improving, likely secondary to possible obstruction vs. medication induced (mobic/zoloft); resolving now -AST/ALT cont downtrending at 508/965 -> 205/141 respectively, alk phos 158 -> 141 - continue to trend #Acute Kidney Injury: unknown baseline; Cr 1.1 -> 0.9 - IVFs - Trend - avoid nephrotoxic agents #Hypokalemia - 3.4 today - KCL 40 teto #Hypertension- chronic; BP well controlled on admission -hold home amlodipine #Dementia- - c/w home aricept #Depression- - Hold home zoloft as potentially hepatotoxic #FEN -d5w-1/2ns +40 Kcl 75 cc/hr -Daily lytes -NPO until lap kashif, then clears #Prophylaxis -Hold HSQ prior to surgery, then restart #Disposition -M/S Plan discussed with attending, Dr. Danish Castro, PGY1
[2018-01-23 07:50] LABS: CHLORIDE 104 mmol/L (98-107); POTASSIUM 3.7 mmol/L (3.5-5.1); SODIUM 139 mmol/L (136-145)
[2018-01-23 07:58] LABS: ALBUMIN 2.8 g/dl (3.4-5.0); ALK PHOS 150 U/L (45-117); ANION GAP 11 (8-16); BLOOD UREA NITROGEN 8 mg/dL (7-18); CALCIUM 7.8 mg/dL (8.5-10.1); CO2 24 mmol/L (21-32); GLUCOSE,RANDOM 115 mg/dL (74-106); LIPASE 61 U/L (73-393); SGOT/AST 127 U/L (15-37); TOT PROT 6.4 g/dl (6.4-8.2)
[2018-01-23 08:05] LABS: SGPT/ALT 496 U/L (12-78)
[2018-01-23 08:26] VITALS: BP 138/65; PULSE 92; TEMP 98.9
--- NOTE | 2018-01-23 08:44 | PN ---
Progress Note, Physician Chief Complaint: POD#1s/p lap kashif under [place] - Current Medication List Current Medications: Active Medications Acetaminophen (Tylenol -) 500 mg PO Q6H [facility] Docusate Sodium (Colace -) 100 mg PO BID [facility] Last Admin: 01/22/18 23:11 Dose: Not Given Donepezil HCl (Aricept -) 5 mg PO HS [facility] Last Admin: 01/22/18 23:11 Dose: Not Given Dextrose/Sodium Chloride (D5-1/2ns+40 Meq Kcl -) 40 meq in 1,000 mls @ 75 mls/ hr IV ASDIR [facility] Last Admin: 01/22/18 22:23 Dose: Not Given Ibuprofen (Motrin -) 600 mg PO Q6H [facility] Last Admin: 01/23/18 05:33 Dose: 600 mg Multivit/Ca Carb/B Cmplx/FA/Prenat (Nephro-Adonay -) 1 tablet PO DAILY [facility] Lhaqz-4-Bpyq Ethyl Esters (Lovaza -) 2 gm PO BID [facility] Last Admin: 01/22/18 23:11 Dose: Not Given Oxycodone HCl (Roxicodone -) 5 mg PO Q6H PRN PRN Reason: PAIN LEVEL 7 - 10 Sertraline HCl (Zoloft -) 100 mg PO DAILY [facility] - Objective Vital Signs: Vital Signs Temperature 98.9 F 01/23/18 08:00 Pulse Rate 92 H 01/23/18 08:00 Respiratory Rate 18 01/23/18 08:00 Blood Pressure 138/65 01/23/18 08:00 O2 Sat by Pulse Oximetry (%) 96 01/23/18 08:29 Labs: CBC, BMP 01/23/18 06:55 01/23/18 06:55 INR, PTT INR 1.08 (0.82-1.09) 01/22/18 07:00 Assessment/Plan Pt resting comfortably, relatives at bedside. Doing well- no apparent anesthetic complications/issues. Continue current care
[2018-01-23] MEDS ORDERED: ACETAMINOPHEN 325 MG TABLET (FP) PO SCH ×2 (09:00)
[2018-01-23] MEDS: OMEGA-3 ACID ETHYL ESTERS (FATTY-ACIDS) 1 GM CAPSULE (FP) PO SCH (09:02)
[2018-01-23] MEDS: DOCUSATE SODIUM 100 MG CAPSULE (FP) PO SCH (09:02)
[2018-01-23] MEDS ORDERED: SERTRALINE HCL 50 MG TABLET (FP) PO SCH (10:00)
[2018-01-23] MEDS ORDERED: VITAMIN B COMP W-C 1 EA TABLET PO SCH (10:00)
[2018-01-23 10:03] LABS: ACANTHOCYTES 0; ANISOCYTOSIS 0; HELMET CELLS 0; HOWELL-JOLLY BODIES 0; MACROCYTOSIS 0; OVALOCYTE 0; SICKELED CELLS 0; TARGET CELLS 0; TEAR DROP CELLS 0; TOXIC GRANULATION 0
[2018-01-23 10:04] LABS: PLATELET ESTIMATE DECREASED; ROULEAU 0
--- NOTE | 2018-01-23 10:54 | PN ---
Progress Note (short form) - Note Progress Note: Pt s/p lap kashif yesterday. Doing well on nonnarcotic pain meds. Has been OOB to bathroom and voided. Has had some juice from home, but did not like hospital breakfast. Wants to go home. Indicates some pain RLQ area. Vital Signs Period Temp Pulse Resp BP Sys/Calles Pulse Ox Last 24 Hr 97.4 F-98.9 F 58-92 16-22 130-171/65-92 92-97 PE: alert but confused scratching (per family, he does a lot at home) - mild macular rash on back and possible fungal rash in groins abdomen soft, distended/protuberant mild tenderness RUQ, RLQ and incisional 2 dressing intact, 2 dressings off, steristrips intact dressings replaced over steristrips no edema or cyanosis CBCD WBC 9.3 K/mm3 (4.0-10.0) D 01/23/18 06:55 RBC 4.46 M/mm3 (4.00-5.60) 01/23/18 06:55 Hgb 13.2 GM/dL (11.7-16.9) 01/23/18 06:55 Hct 39.3 % (35.4-49) 01/23/18 06:55 MCV 88.1 fl (80-96) 01/23/18 06:55 MCHC 33.5 g/dl (32.0-35.9) 01/23/18 06:55 RDW 14.0 % (11.9-15.9) 01/23/18 06:55 Plt Count 130 K/MM3 (134-434) L 01/23/18 06:55 MPV 9.0 fl (7.5-11.1) 01/23/18 06:55 CMP Sodium 139 mmol/L (136-145) 01/23/18 06:55 Potassium 3.7 mmol/L (3.5-5.1) 01/23/18 06:55 Chloride 104 mmol/L (98-107) 01/23/18 06:55 Carbon Dioxide 24 mmol/L (21-32) 01/23/18 06:55 Anion Gap 11 (8-16) 01/23/18 06:55 BUN 8 mg/dL (7-18) D 01/23/18 06:55 Creatinine 1.0 mg/dL (0.7-1.3) 01/23/18 06:55 Creat Clearance w eGFR > 60 (>60) 01/23/18 06:55 Calcium 7.8 mg/dL (8.5-10.1) L 01/23/18 06:55 Total Bilirubin 2.0 mg/dL (0.2-1.0) H D 01/23/18 06:55 AST 127 U/L (15-37) H D 01/23/18 06:55 ALT 496 U/L (12-78) H D 01/23/18 06:55 Alkaline Phosphatase 150 U/L (45-117) H 01/23/18 06:55 Total Protein 6.4 g/dl (6.4-8.2) 01/23/18 06:55 Albumin 2.8 g/dl (3.4-5.0) L 01/23/18 06:55 postop labs as anticipated, transaminases decreasing still others likely secondary to cauterization of liver bed A/P: POD1 s/p laparoscopic cholecystectomy doing well needs to keep dressings on until 48 hrs postop advised family to keep him from scratching at steristrips or incisions once off as well instructions in d/c plan f/u 2 wks ok for d/c home Problem List - Problems (1) Elevated liver enzymes Code(s): R74.8 - ABNORMAL LEVELS OF OTHER SERUM ENZYMES (2) Other abnormalities of gait and mobility Code(s): R26.89 - OTHER ABNORMALITIES OF GAIT AND MOBILITY (3) Dehydration Code(s): E86.0 - DEHYDRATION (4) Altered mental status Code(s): R41.82 - ALTERED MENTAL STATUS, UNSPECIFIED Qualifiers: Altered mental status type: disorientation Qualified Code(s): R41.0 - Disorientation, unspecified (5) Alzheimers disease Code(s): G30.9 - ALZHEIMER'S DISEASE, UNSPECIFIED; F02.80 - DEMENTIA IN OTH DISEASES CLASSD ELSWHR W/O BEHAVRL DISTURB Qualifiers: Alzheimer's disease onset: unspecified onset Dementia behavioral disturbance: with behavioral disturbance Qualified Code(s): G30.9 - Alzheimer' s disease, unspecified; F02.81 - Dementia in other diseases classified elsewhere with behavioral disturbance; F02.81 - Dementia in other diseases classified elsewhere with behavioral disturbance; F02.81 - Dementia in other diseases classified elsewhere with behavioral disturbance
--- NOTE | 2018-01-23 13:45 | PN ---
Teaching Attending Note Name of Resident: Jeffery Castro ATTENDING PHYSICIAN STATEMENT I saw and evaluated the patient. I reviewed the resident's note and discussed the case with the resident. I agree with the resident's findings and plan as documented. SUBJECTIVE:pain is controlled. tolerating diet. no BM. denies CP, SOB, fever, chills, N/V/C/D OBJECTIVE: Last Vital Signs Temp Pulse Resp BP Pulse Ox 98.9 F 92 H 18 138/65 96 01/23/18 08:00 01/23/18 08:00 01/23/18 08:00 01/23/18 08:00 01/23/18 08:29 General NAD Abdomen soft slightly distended. NT. surgical incision with dressings c/d/i. non tender. ASSESSMENT AND PLAN: 82yo M with PMH HTN and dementia presenting with abdominal pain and found to have acute transaminitis 1. Acute transaminitis- likely medication induced (mobic/zoloft) vs gallstone. s /p laprascopic cholecystectomy 4/4. tolerated surgery well. tolerating diet. post-op care per surgery. no indication for abx. f/u with surgery in 2 weeks. instructed for repeat labs next week and consider re-starting zoloft if normalized. 2. Hypokalemia- resolved 3. BEA- likely dehydration. now resolved. 4. HTN- res-start norvasc 5. dementia- at baseline per family at bedside. on aricept. 6. DVT ppx- hep sq 7. spoke with family present at bedside. all questions answered. verbalized understanding and agreement with plan. d/c home
--- NOTE | 2018-01-23 17:26 | DS ---
Physical Exam: SUBJECTIVE: Patient seen and examined by me this AM - No overnight events. Pt doing well, minimal surgical site pain. Tolerating PO feeds. One BM overnight. Denies f/c/n/v/d, valdivia, vision changes, cp, cough, sob, back pain, le edema, focal neuro deficits. Pt cleared by surgical team for discharge and outpt f/u. OBJECTIVE: Vital Signs Intake & Output 01/20/18 01/21/18 01/22/18 01/23/18 23:59 23:59 23:59 23:59 Intake Total 2300 3000 1450 Output Total 800 1015 500 Balance 1500 1985 950 Weight 76.204 kg Period Temp Pulse Resp BP Sys/Calles Pulse Ox Last 24 Hr 97.4 F-98.9 F 61-92 16-22 132-171/65-92 92-97 PHYSICAL EXAM GENERAL: Elderly man, NAD, alert HEAD: Normal with no signs of trauma. EYES: PERRL, extraocular movements intact, sclera anicteric, conjunctiva clear. No ptosis. ENT: Ears normal, nares patent, oropharynx clear without exudates, moist mucous membranes. NECK: Trachea midline, full range of motion, supple. LUNGS: Breath sounds equal, CTABL, no wheezes, no crackles, no accessory muscle use. HEART/CHEST: numerous AK on anterior chest wall. Regular rate and rhythm, S1, S2 without murmur, rub or gallop. ABDOMEN: Surgical incision sites c/d/i. Soft, ND, NT. Normoactive bowel sounds, no guarding, no rebound, no hepatosplenomegaly, no masses. EXTREMITIES: 2+ DP/PT pulses BL, warm, well-perfused, no edema. NEUROLOGICAL: Cranial nerves II through XII grossly intact. Normal speech, gait not observed. PSYCH: Normal mood, normal affect. pleasant SKIN: Warm, dry, normal turgor, no rashes or lesions noted LABS Laboratory Results - last 24 hr CBC, BMP 01/23/18 06:55 01/23/18 06:55 01/23/18 01/23/18 06:55 06:55 WBC 9.3 D RBC 4.46 Hgb 13.2 Hct 39.3 MCV 88.1 MCH 29.5 MCHC 33.5 RDW 14.0 Plt Count 130 L MPV 9.0 Neutrophils % No Result Required. Neutrophils % (Manual) 84.0 H Band Neutrophils % 9.0 Lymphocytes % No Result Required. Lymphocytes % (Manual) 1.0 L Monocytes % (Manual) 5 Eosinophils % (Manual) 1.0 Basophils % (Manual) 0.0 Myelocytes % (Man) 0 Promyelocytes % (Man) 0 Blast Cells % (Manual) 0 Nucleated RBC % 0 Metamyelocytes 0 Hypochromia 0 Toxic Granulation 0 Dohle Bodies 0 Platelet Estimate Decreased Polychromasia 0 Poikilocytosis 0 Basophilic Stippling 0 Anisocytosis 0 Microcytosis 0 Macrocytosis 0 Spherocytes 0 Sickle Cells 0 Target Cells 0 Tear Drop Cells 0 Ovalocytes 0 Stomatocytes 0 Helmet Cells 0 [place] Bodies 0 [place] Rings 0 Nayeli Cells 0 Acanthocytes (Spur) 0 Rouleaux 0 Fragmented RBCs 0 Schistocytes 0 Sodium 139 Potassium 3.7 Chloride 104 Carbon Dioxide 24 Anion Gap 11 BUN 8 D Creatinine 1.0 Creat Clearance w eGFR > 60 Random Glucose 115 H Calcium 7.8 L Total Bilirubin 2.0 H D AST 127 H D ALT 496 H D Alkaline Phosphatase 150 H Total Protein 6.4 Albumin 2.8 L Lipase 61 L No micro CXR 4/2 - IMPRESSION: Small left pleural effusion versus chronic pleural thickening with subsegmental atelectasis versus consolidation in the left lung base. Please correlate clinically. Head CT 4/2 - Impression: Moderate atrophy. No gross evidence of a focal intracranial lesion or hemorrhage is seen. Correlate clinically to determine further evaluation and follow-up Ab CT/pelvis 4/2 -IMPRESSION: 1. Contracted gallbladder with pericholecystic fluid and/or gallbladder wall thickening. Please correlate clinically and with right upper quadrant ultrasound. 2. Enlarged prostate gland with nonspecific subcentimeter hypodensity in the right lobe. Please correlate with PSA and physical exam. 3. Circumferentially prominent urinary bladder wall may be secondary to underdistention and/or chronic outlet obstruction, although cystitis cannot be excluded. Please correlate clinically with urinalysis. 4. Please refer to the report above for other findings. RUQ U/S 4/2 - IMPRESSION: 1. Contracted gallbladder with pericholecystic fluid and/or gallbladder wall thickening. Please correlate clinically and with right upper quadrant ultrasound. 2. Enlarged prostate gland with nonspecific subcentimeter hypodensity in the right lobe. Please correlate with PSA and physical exam. 3. Circumferentially prominent urinary bladder wall may be secondary to underdistention and/or chronic outlet obstruction, although cystitis cannot be excluded. Please correlate clinically with urinalysis. 4. Please refer to the report above for other findings. MRCP / -IMPRESSION: 1. Extremely limited exam secondary to image degradation from patient motion on all sequences. 2. No pathologic bile duct or pancreatic ductal dilatation. No definite choledocholithiasis, bile duct mass or pancreatic mass. 3. Physiologic gallbladder distention with mild gallbladder wall thickening and pericholecystic fluid. Cholelithiasis seen on ultrasound is not identified on this MRI. Please correlate clinically for cholecystitis. Consults: Surgery - Seen by Dr. Jimenez [facility]SE: Prehospital course: 82 year old male with a history of hypertension and dementia presents to the hospital for 24 hour history of RUQ abdominal pain that began last night at 9pm while he was watching TV. He states that the pain is abrupt, non-radiating, 10/ 10 in severity located in the RUQ. He was eating dinner prior to the pain beginning. Not associated with any nausea, vomiting or diarrhea. His family states that he had a similar pain several months ago which went away spontaneously without intervention. His last colonoscopy was many years ago in the [place]. He states that his last bowel movement was yesterday and says that his urine is dark yellow. States that the pain has improved since initial presentation. Patient denies chest pain, shortness of breath, nausea, vomiting, diarrhea, fevers, chills, headache. Home meds: Donezepil, Meloxicam, Aspirin, Amlodipine, [place]-3, Vitamin B, Sertraline - Patient pharamcy: [facility] [address] ER course was notable for: (1) AST/ALT 1830/2141, AP 254 (2) CT abd: pericholecystic fluid/gallbladder wall thickening (3) levaquin/flagyl given Hospital course: On admission, labs notable as above. Pt ordered of lipid panel, hepatitis panel , ammonia level; all normal. GI and Gen surgery were consulted. Pt started on IVFs, CT head, cxr and ct ab/pelvis as noted above. RUQ as noted above. Pt ordered for MRCP to further evaluate hepatobiliary anatomy per GI/surg recs. LFTs continually improved on admission with bowel rest, IVFs. Pt with persistent hypokalemia during admission, repleted intermittently. Pt received lap kashif 01/22 with no complications, tolerated procedure well. Able to tolerate PO feeds well with minimal pain, VSS on 01/23. Restarted on home norvasc for HTN, advise to stop zoloft/meloxicanm as possible element of medication induced transaminitis vs gallstone-induced. Referred for f/u with Dr. Jimenez in two weeks post-op. Date of Admission:01/20/18 Date of Discharge: 01/23/18 Pt is medically stable and cleared for discharge with outpt f/u with Dr. Jimenez in 1-2 weeks for post-op management. Minutes to complete discharge: 35 Discharge Summary Reason For Visit: ELIVATED TRANSAMINASE MEASUREMENT,ABD PAIN Condition: Stable - Instructions Diet, Activity, Other Instructions: Postoperative instructions: You had a laparoscopic cholecystectomy on 01/22/[address] Castro Jimenez of [facility]. Your zoloft and mobic have both been held as they can worsen your liver function. Continue to hold these medications until instructed by your primary care doctor that it is safe for you to re-start them. Activity: Resume your usual activities gradually, but no heavy exertion or lifting more than 10-15 pounds for 1 month. Remove dressings 48 hours after surgery; sticky tapes underneath will fall off by themselves. You may shower daily starting then, just pat the incision areas dry. No bath or swimming until skin incisions have healed. Eat lightly at first, but advance to your usual diet as tolerated. Pain: For pain, you may use and alternate Tylenol (acetaminophen) 500mg and/or ibuprofen 200-600 mg every 6 hours each as needed; this means that you can take one OR the other at 3-hour intervals. If you are prescribed a Tylenol/narcotic combination for severe pain, use it instead of plain Tylenol as needed and switch back when your pain starts decreasing. Do not take more than 2000mg of acetaminophen in a day. Take medications as prescribed or indicated on the labeling. Follow-up: Call Dr. Jimenez's office at [phone] to make your postop appointment (Saturday ~2 weeks after surgery). Clinic is held in the [facility] on the first floor of [facility]. Please follow up with your primary care doctor next week. You will need to have your liver function tests repeated to ensure they have normalized. Also discuss re-starting zoloft and/or mobic at this time. Call the office if you have: * increasing pain not responsive to pain medication * fever of 101F or higher * vomiting * unusual or increasing bleeding or drainage from wounds * increasing redness or swelling at wound sites Also, see your primary medical doctor within 1-2 weeks. Please stop taking your Zoloft and Meloxicam until you have seen your primary care provider. These meds can damage your liver. Please take all other home medications as previously prescribed. If you experience constipation, please use one of the following medications as needed. You can obtain these medications over the counter. Please take as instructed on the container: -Senna -Colace -Miralax Referrals: Tod Mulligan MD [Primary Care Provider] - 1 Week Castro Jimenez MD [Staff Physician] - 2 Weeks Disposition: VNS/HOME HEALTH CARE - Home Medications Comprehensive Discharge Medication List: Ambulatory Orders Amlodipine Besylate [Norvasc -] 10 mg PO DAILY 01/20/18 Aspirin Coated [Ecotrin -] 81 mg PO DAILY 01/20/18 Donepezil HCl [Aricept -] 5 mg PO HS 01/20/18 [place]-3 Fatty Acids [[place]-3] 1,000 mg PO DAILY 01/20/18 Vit B Comp/C/Folic/Iron/Vit E [Vitamin B Complex Tablet] 1 each PO DAILY Fluticasone Prop 0.05% Nasal [Flonase -] 1 puff IN BID PRN 01/21/18 This patient is new to me today: No Emergency Visit: Yes ED Registration Date: 01/20/18 Care time: The patient presented to the Emergency Department on the above date and was hospitalized for further evaluation of their emergent condition. Critical Care patient: No - Discharge Referral Referred to [facility] No
--- NOTE | 2018-01-24 13:54 | PATH ---
Surgical Pathology Report Patient Name: LAURO HDZ Med. Rec. #: [id number] /Age/Gender: 1935 (Age: 82) / M Account: [id number] Location: [address] [place] [address]/[facility] Taken: 01/22/2018 Received: 01/23/2018 Reported: 01/24/2018 Physicians: Letty Brian M.D. Specimen(s) Received GALLBLADDER Clinical History Acute cholecystitis Final Diagnosis GALLBLADDER, CHOLECYSTECTOMY: CHRONIC CHOLECYSTITIS AND CHOLELITHIASIS. Electronically Signed Abdoulaye Lang M.D. Gross Description Received in formalin, labeled "gallbladder," is a 7.5 x 3.6 x 2.3 cm. gallbladder with a 0.2 cm. in length portion of cystic duct attached. The outer surface is green and varies from smooth to shaggy. The lumen contains green, tenacious bile as well as multiple black, irregular choleliths ranging from 0.2-0.6 cm in greatest dimension. The mucosa is green and velvety. The wall of the gallbladder averages 0.1 cm. in thickness. [employer] sections are submitted in one cassette. 01/23/201801/23/2018
== END 2018-01-23 13:19 | disposition home health service (06) | DRG 263 ==
LOC: JER 12:24 → JERBED 19:43 → J5S 22:41 → J6S 01-22 21:11
PROVIDERS: ADMIT Internal Medicine; ATTEND Internal Medicine
PROC: 0FT44ZZ Resection of Gallbladder, Percutaneous Endoscopic Approach (ICD-10-PCS; principal; 2018-01-22 16:30)
DX: K80.12 Calculus of gallbladder with acute and chronic cholecystitis without obstruction (principal); N17.9 Acute kidney failure, unspecified; I10 Essential (primary) hypertension; F03.90 Unspecified dementia, unspecified severity, without behavioral disturbance, psychotic disturbance, mood disturbance, and anxiety; E87.6 Hypokalemia; R74.0 Nonspecific elevation of levels of transaminase and lactic acid dehydrogenase [LDH]; E86.0 Dehydration; R41.82 Altered mental status, unspecified; G30.9 Alzheimer's disease, unspecified; F32.9 Major depressive disorder, single episode, unspecified; Z87.891 Personal history of nicotine dependence; F02.81 Dementia in other diseases classified elsewhere, unspecified severity, with behavioral disturbance
CPT/HCPCS: 36415; 70450-TC; 71045-TC-FY; 74177-TC; 74182-TC; 76705-TC; 80053; 80074; 81003; 81015; 82140; 82248; 82550; 83690; 83735; 83880; 84100; 84484; 85025; 85027; 85610; 86850; 86900; 86901; 93005; 93010; 94760; 97116-GP; 97161-GP; 99283-25; J0131; J1644; J7030